=== PATIENT | female | born 1945 | race Caucasian/White ===

== ENCOUNTER 2024-12-04 08:41 | Inpatient (IN) ==
--- NOTE | 2024-12-04 09:11 | Emergency Department Note ---
Impression & Plan Chest pain, Generalized weakness, Symptomatic anemia, Thrombocytopenia ED Provider Note HISTORY OF PRESENT ILLNESS: Patient is a 79-year-old female presenting with chest pain. Patient reports that yesterday morning she had an episode of nausea and vomiting. She states that she was fine throughout the day and had gone to the [employer] and had no issues. Reports that last night she had a heaviness sensation in her chest. States that she felt very diaphoretic and unwell. States the symptoms lasted for a few minutes at a time. States that then throughout the night she had occasional episodes of the chest pain but only when she coughed. Denies any recent fevers. Denies any significant shortness of breath this morning. She states that she woke up again this morning had another episode of vomiting. She discussed her symptoms with her daughter who recommended that she present to the emergency department. Patient is chest pain-free on arrival to the emergency department. She does states she "feels very tired and not right." She reports that she has a history of cardiac stents and is on aspirin and Plavix. Denies any recent fevers or chills. Denies any productivity to her cough. Patient reports that she has also been feeling very weak and rundown today. States that she was going to be going to the [employer] and she just does not feel like her normal self. Denies any melena or hematochezia. ROS: as above PHYSICAL EXAM: Constitutional: Patient appears in no acute distress. HENT: Head: Normocephalic and atraumatic. Eyes: EOMI, PERRL Mouth/Throat: Mucous membranes moist. Neck: Trachea midline. Neck supple. Cardiovascular: RRR, No murmurs, rubs or gallops. Intact distal pulses. Pulmonary/Chest: No respiratory distress. Breath sounds clear and equal bilaterally. No wheezes or rales. Abdominal: Abdomen soft, no tenderness, rebound or guarding. Rectal: Chaperoned by nursing staff. No palpable masses or hemorrhoids. No marvin blood or melena. Hemoccult negative. Musculoskeletal: No edema, tenderness or deformity noted. Skin: Warm and dry. No rash, erythema, pallor or cyanosis Psychiatric: Appropriate mood and affect for situation. Neurological: Alert and keenly responsive. CN II-XII grossly intact, moving all extremities equally and fully. MDM: - Vitals signs stable - History obtained via patient. History as above. - Chronic conditions affecting care: CAD (s/p PCI); HTN - Differential diagnoses include, but are not limited to: Acute coronary syndrome; pulmonary embolism; dissection; tension pneumothorax; esophageal rupture; pneumonia - Order placed for continuous cardiac monitoring. At this time, monitor showed rate of 54 bpm with normal sinus rhythm, per my interpretation. - External medical records reviewed. - EKG image interpreted by myself showed normal sinus rhythm. Rate 63 bpm. QTc 476. No acute ischemic changes. - Laboratory workup interpreted by myself showed normal WBC; anemia (Hgb 8.8); thrombocytopenia (plt 102); normal PT/INR; stable electrolytes; elevated total bilirubin (1.5); normal troponin; normal AST/ALT; normal lipase - CXR image reviewed by myself is negative for pneumonia, per my interpretation. - Repeat troponin within normal limits. - Viral respiratory panel negative - On review of patient's [facility] medical record, she had a hemoglobin of 13.8 on laboratory draw from 01/08/2024. - Rectal exam performed by myself and chaperoned by nursing staff. Rectal exam was negative for any gross blood or melena and Hemoccult negative. - Iron studies were added to the serum workup. Also added tickborne illness workup given the patient's symptoms and thrombocytopenia. - Discussion was had with case manager specialist about patient's case and need for admission - Hospitalist consulted for admission - Patient admitted [facility] hospitalist service for further evaluation and management. ASSESSMENT AND PLAN: Diagnosis: Chest pain; generalized weakness; symptomatic anemia; thrombocytopenia Plan: Admit Past Med/Surg History Problem List (Updated 12/04/24 @ 12:51 by Luz Marina Cervantes MD) Thrombocytopenia (Acute) Symptomatic anemia (Acute) Generalized weakness (Acute) Chest pain (Acute) Abnormal ECG (Acute) Hypertension (Chronic) NSTEMI (non-ST elevated myocardial infarction) (Acute) Unstable angina (Acute) Social History Smoking Status: Never smoker Preferred Language: Swedish Feels Safe at Home: Yes Allergies Allergies Allergy/AdvReac Type Severity Reaction Status Date / Time lisinopril AdvReac Mild cough Verified 12/04/24 11:25 Home Meds Home Medications Medication Instructions Recorded Confirmed aspirin 81 mg tablet,delayed 81 mg PO QAM 07/29/18 12/04/24 release atorvastatin 80 mg tablet 80 mg PO HS 07/29/18 12/04/24 clopidogrel 75 mg tablet 75 mg PO QAM 07/29/18 12/04/24 glipizide 10 mg tablet, extended 10 mg PO BIDM 07/29/18 12/04/24 release 24 hr losartan 25 mg tablet 25 mg PO QAM 07/29/18 12/04/24 metoprolol succinate 25 mg 25 mg PO QAM 07/29/18 12/04/24 tablet,extended release 24 hr nitroglycerin 0.4 mg sublingual 0.4 mg sublingual UD 07/29/18 12/04/24 tablet vit C 250 mg-vit E 90 mg-zinc 40 1 tab PO BID 07/29/18 12/04/24 mg-copper 1 [id number] capsule (PreserVision AREDS-2) amlodipine 10 mg tablet 10 mg PO HS 12/04/24 12/04/24 dapagliflozin propanediol 10 mg 10 mg PO QAM 12/04/24 12/04/24 tablet (Farxiga) dulaglutide 4.5 mg/0.5 mL 4.5 mg subcut WK 12/04/24 12/04/24 subcutaneous pen injector ([facility] [facility]) nystatin 100,000 unit/gram topical 1 applic topical BID PRN Flare 12/04/24 12/04/24 ointment thiamine HCl (vitamin B1) 250 mg 250 mg PO DAILY 12/04/24 12/04/24 tablet (Vitamin B-1) triamcinolone acetonide 0.1 % 1 applic topical BID PRN Flare 12/04/24 12/04/24 topical ointment Results & Data (ED) Vital Signs Vital Signs - 24 hr 12/04/24 08:45 12/04/24 08:59 12/04/24 09:19 Temperature 36 C L Temperature Source Temporal Artery Scan Pulse Rate 70 66 Pulse Rate [Apical] 59 L Pulse Rate from SpO2 Sensor Pulse Rhythm Pulse Rhythm [Apical] Regular Pulse Strength [Apical] Normal Respiratory Rate 18 22 Respiratory Effort / Characteristics Non-Labored Non-Labored Spontaneous Respiratory Depth Normal Normal Respiratory Pattern Regular Regular Blood Pressure 133/60 Blood Pressure [Left Arm] 136/67 Blood Pressure Mean 84 Blood Pressure Mean [Left Arm] 90 Pulse Oximetry 100 94 Oxygen Delivery Method Room Air Room Air Sepsis Recent Fever Within 48 Hours No Sepsis New/Unexplained Change in Mental Status N/A Sepsis Action Taken by Nursing No Action Required 12/04/24 09:47 12/04/24 10:00 12/04/24 11:00 Temperature Temperature Source Pulse Rate 59 L 49 L 54 L Pulse Rate [Apical] Pulse Rate from SpO2 Sensor 48 L 52 L Pulse Rhythm Regular Pulse Rhythm [Apical] Pulse Strength [Apical] Respiratory Rate 24 23 16 Respiratory Effort / Characteristics Respiratory Depth Respiratory Pattern Blood Pressure 132/46 L 135/62 Blood Pressure [Left Arm] Blood Pressure Mean 74 86 Blood Pressure Mean [Left Arm] Pulse Oximetry 97 96 96 Oxygen Delivery Method Room Air Room Air Room Air Sepsis Recent Fever Within 48 Hours Sepsis New/Unexplained Change in Mental Status Sepsis Action Taken by Nursing Laboratory Data 12/04/24 09:05 12/04/24 09:05 Lab Results 12/04/24 12/04/24 12/04/24 Range/Units 09:05 09:40 10:40 WBC 8.70 (4.8-10.8) K/ul RBC 2.62 L (4.20-5.40) M/uL Hgb 8.8 L (12.0-16.0) g/dl Hct 26.7 L (37.0-47.0) % MCV 101.9 H (80.0-100.0) fL MCH 33.6 (25.0-34.0) pg MCHC 33.0 (32.0-36.0) g/dL RDW Std Deviation 59.9 H (36.4-46.3) fL RDW Coeff of Curtis 16.1 H (11.5-14.5) % Plt Count 102 L (130-400) K/uL MPV 11.2 (9.4-12.4) fL Absolute Nucleated RBC 0.40 H (0.00-0.12) K/uL Nucleated RBC % (auto) 4.6 % Neutrophils % (Manual) 70 % Lymphocytes % (Manual) 19 % Monocytes % (Manual) 10 % Eosinophils % (Manual) 1 % Neutrophils # (Manual) 6.09 (1.40-6.50) K/uL Total Absolute Neuts 6.09 (1.4-6.5) K/uL Lymphocytes # (Manual) 1.65 (1.2-3.4) K/uL Total Abs Lymphocytes 1.65 (1.2-3.4) K/uL Monocytes # (Manual) 0.87 H (0.11-0.59) K/uL Eosinophils # (Manual) 0.09 (0-0.50) K/uL Acanthocytes (Spur) 1+ PT 11.4 (9.0-12.0) Seconds INR 1.1 (0.9-1.1) Sodium 134 L (136-145) mmol/L Potassium 4.5 (3.5-5.1) mmol/L Chloride 102 (98-107) mmol/L Carbon Dioxide 25 (21-32) mmol/L Anion Gap 7 (3-11) BUN 24 H (6-23) mg/dl Creatinine 1.07 (0.6-1.2) mg/dl Est Cr Clr Drug Dosing 47.5 ml/min eGFR 53.17 BUN/Creatinine Ratio 22.4 H (10-20) Glucose 265 H (70-99(Fasting)) mg/dl Calcium 8.9 (8.6-10.3) mg/dl Magnesium 2.3 (1.7-2.4) mg/dl Total Bilirubin 1.5 H (0.2-1.0) mg/dl AST 19 (13-39) U/L ALT 21 (7-52) U/L Alkaline Phosphatase 79 (34-104) U/L Troponin I High Sens 12.1 10.8 (0-14) pg/ml Total Protein 6.5 (6.0-8.3) gm/dl Albumin 3.7 (3.4-5.0) gm/dl Globulin 2.8 (2.5-4.0) gm/dl Albumin/Globulin Ratio 1.3 (0.9-2) Lipase 8 L (11-82) U/L Adenovirus (PCR) Not Detected (NotDetected) B. pertussis DNA (PCR) Not Detected (NotDetected) B.parapertussis DNA PCR Not Detected (NotDetected) C. pneumoniae DNA (PCR) Not Detected (NotDetected) Coronavirus OC43 (PCR) Not Detected (NotDetected) Coronavirus HKU1 (PCR) Not Detected (NotDetected) Coronavirus 229E (PCR) Not Detected (NotDetected) SARS-CoV-2 (PCR) Not Detected (NotDetected) Coronavirus NL63 (PCR) Not Detected (NotDetected) Human Metapneumovir PCR Not Detected (NotDetected) Influenza Type A (PCR) Not Detected (NotDetected) Influenza Type B (PCR) Not Detected (NotDetected) M. pneumoniae (PCR) Not Detected (NotDetected) Parainfluenza 1 (PCR) Not Detected (NotDetected) Parainfluenza 2 (PCR) Not Detected (NotDetected) Parainfluenza 3 (PCR) Not Detected (NotDetected) Parainfluenza 4 (PCR) Not Detected (NotDetected) RSV (PCR) Not Detected (NotDetected) Entero/Rhino (PCR) Not Detected (NotDetected) Imaging Data Radiologist's Impression: Chest X-Ray 12/04/24 08:51 XR chest 1V portable CLINICAL HISTORY: Chest pain, nonspecific COMPARISON STUDY: 09/18/2014 FINDINGS: There is mild cardiomegaly without pulmonary vascular congestion. Lungs are mildly hyperexpanded. No consolidation or pleural effusion. No pneumothorax. IMPRESSION: No acute findings. ACT 112: Negative or not required by law. Electronically signed by: Christian Barber M.D. 12/04/2024 9:33 AM Discharge Plan Visit Data Chief Complaint: Illness Stated Complaint: HEAVY CHEST, UPSET STOMACH, WEAKNESS ED Provider: Luz Marina Cervantes Discharge Problem: Chest pain, Generalized weakness, Symptomatic anemia, Thrombocytopenia Condition: Fair Forms Stand Alone Forms: [facility] Prescriptions Prescriptions: No Action atorvastatin 80 mg tablet 80 mg PO HS glipizide 10 mg tablet extended release 24hr 10 mg PO BIDM clopidogrel 75 mg tablet 75 mg PO QAM aspirin 81 mg Tablet,Delayed Release (Dr/Ec) 81 mg PO QAM losartan 25 mg tablet 25 mg PO QAM nitroglycerin 0.4 mg tablet, sublingual 0.4 mg sublingual UD metoprolol succinate 25 mg tablet extended release 24 hr 25 mg PO QAM PreserVision AREDS-2 [id number] Capsule 1 tab PO BID nystatin 100,000 unit/gram ointment 1 applic TOPICAL BID PRN (Reason: Flare) thiamine HCl (vitamin B1) [Vitamin B-1] 250 mg Tablet 250 mg PO DAILY amlodipine 10 mg tablet 10 mg PO HS triamcinolone acetonide 0.1 % ointment 1 applic TOPICAL BID PRN (Reason: Flare) dapagliflozin propanediol [Farxiga] 10 mg tablet 10 mg PO QAM Trulicity 4.5 mg/0.5 mL pen injector 4.5 mg SUBCUT WK Rx Instructions: Monday Referrals Referrals: Len Owens MD [Primary Care Provider] -
--- NOTE | 2024-12-04 09:34 | XRay Report ---
XR chest 1V portable CLINICAL HISTORY: Chest pain, nonspecific COMPARISON STUDY: 09/18/2014 FINDINGS: There is mild cardiomegaly without pulmonary vascular congestion. Lungs are mildly hyperexp anded. No consolidation or pleural effusion. No pneumothorax. IMPRESSION: No acute findings. ACT 112: Negative or not required by law. Electronically signed by: Christian Barber M.D. 12/04/2024 9:33 AM
[2024-12-04 09:41] LABS: Alanine Aminotransferase 21.0 U/L (7-52); Albumin Globulin Ratio 1.3 (0.9-2); Alkaline Phosphatase 79.0 U/L (34-104); Anion Gap 7.0 (3-11); Bilirubin,Total 1.5 mg/dl (0.2-1.0); Blood Urea Nitrogen 24.0 mg/dl (6-23); Calcium 8.9 mg/dl (8.6-10.3); Carbon Dioxide 25.0 mmol/L (21-32); Chloride 102.0 mmol/L (98-107); Creatinine Clr Calc Pharmacy 47.5 ml/min; Globulin 2.8 gm/dl (2.5-4.0); Glucose 265.0 mg/dl (70-99(Fasting)); Lipase 8.0 U/L (11-82); Magnesium 2.3 mg/dl (1.7-2.4); Potassium 4.5 mmol/L (3.5-5.1); Sodium 134.0 mmol/L (136-145); Total Protein 6.5 gm/dl (6.0-8.3)
[2024-12-04 09:46] LABS: Hematocrit (blood only) 26.7 % (37.0-47.0); Hemoglobin 8.8 g/dl (12.0-16.0); Mean Corpuscular Hemoglobin 33.6 pg (25.0-34.0); Mean Corpuscular Volume 101.9 fL (80.0-100.0); Platelet Count 102 K/uL (130-400); RDW Standard Deviation 59.9 fL (36.4-46.3); Red Blood Count 2.62 M/uL (4.20-5.40); White Blood Count 8.70 K/ul (4.8-10.8)
[2024-12-04 09:47] LABS: ALC (manual) 1.65 K/uL (1.2-3.4); ANC (manual) 6.09 K/uL (1.4-6.5); Acanthocytes 1+
[2024-12-04 09:49] LABS: INR 1.1 (0.9-1.1); Prothrombin Time 11.4 Seconds (9.0-12.0)
[2024-12-04 10:48] LABS: Chlamydia pneumoniae PCR Not Detected (NotDetected); Coronavirus 229E PCR Not Detected (NotDetected); Coronavirus CoV-2 (COVID19)PCR Not Detected (NotDetected); Coronavirus HKU1 PCR Not Detected (NotDetected); Coronavirus NL63 PCR Not Detected (NotDetected); Coronavirus OC43PCR Not Detected (NotDetected); Human Metapneumovirus PCR Not Detected (NotDetected); Parainfluenza Virus 1 PCR Not Detected (NotDetected); Parainfluenza Virus 2 PCR Not Detected (NotDetected); Parainfluenza Virus 3 PCR Not Detected (NotDetected); Parainfluenza Virus 4 PCR Not Detected (NotDetected); Respiratory Syncytial VirusPCR Not Detected (NotDetected); Rhinovirus/Enterovirus PCR Not Detected (NotDetected)
[2024-12-04] MEDS ORDERED: ONDANSETRON INJ 2 MG/ML 2 ML VIAL IV PRN (12:47)
[2024-12-04] MEDS ORDERED: MAGNESIUM HYDROXIDE SUSP 30 ML UDC PO PRN (12:47)
[2024-12-04] MEDS ORDERED: POLYETHYLENE (MIRALAX) 17 GM PACK PO PRN (12:47)
[2024-12-04] MEDS ORDERED: ALUMINUM/MAGNESIUM SUSP 30 ML UDC PO PRN (12:47)
--- NOTE | 2024-12-04 12:57 | History & Physical Report ---
<Statement entered by Ezekiel Zuñiga DO - 12/04/24 14:40> Patient seen and examined at bedside #Symptomatic anemia -2 episodes of possible coffee ground emesis in setting of DAPT -Hgb 8.8 with baseline 13 -No melena or BRBPR -Macrocytosis -Concern for PUD Plan -Hold DAPT -Follow HGb. 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 Two episodes of coffee-ground emesis over past 24 hours. H/O AMI in 2015 s/p JOSEPH to prox RCA; continues on DAPT. Admit for symptomatic anemia workup and bradycardia as outlined below. Symptomatic Anemia: Emesis x 2; coffee-ground past 24 hours Hgb ED 8.8; baseline 13.0 from 12/2023 No leukocytosis H/O C-scoope Q 3 years for polyps; no recollection of biospy or interventions No H/O EGD. Trend H&H Q6 x 3 CXR negative Anemia panel ordered T/C and blood consent obtained FOBT ordered; denies hematochezia Protonix 40 mg IV BID started in ED Keep n.p.o. for now; pending GI Consult Lymes pending GI consult placed; discussed via Bern Text Bradycardia: Chest pain: HTN: Substernal chest pressure noted this AM with SOB ECG reveals AF with LBBB; patient with motion; possible PAC's when reviewed; repeat ECG now. Troponin neg x2 Mg+ 2.3, K+ 4.5; monitor labs in AM TSH ordered Last ECHO 2021: EF 65-69%, LVWM normal, no valve abnormalities; Repeat ECHO Orthostatic BPs ordered Normotensive in ED Takes Amlodipine 10 mg QHS and Losartan 25 mg QAM; continue for now as less affect on HR Takes Metoprolol 25 mg daily; hold for now CAD: History of AMI: s/p JOSEPH --> prox RCA in 2016 Follows with [facility]; last appt 2021 Reviewed last note from 2021; was instructed to continue DAPT Takes ASA and Plavix; hold for now given anemia and prolongation of use NIDDM2: Metformin was stopped 05/2024 Last A1C 05/2024 8.4; repeat Takes Farxiga, Trulicity, and Glipizide; hold for now and place on ACHS FSBS SSI HLD: Takes high-dose Atovastatin; continue Obtain lipid panel in AM Disposition: PCP: Dr. Owens Code Status: Full VTE Prophylaxis: Teds and SCDs for now I spent a total of 81 minutes coordinating, documenting, and providing care for this patient excluding time spent inthe performance of separately billed services or time spent by another provider/QHP. History of Present Illness Chief Complaint: weakness and sob Primary Care Provider: Len Owens MD Ms. Mares is a 79 year old female that presented to the ED with complaints of SOB and substernal chest pressure, which resolved when she arrived to the ED. She was at the [facility] and reports she was not eating her usual diet and this morning she woke up and felt winded carrying a suitcase. She also reports coffee-ground emesis over past 24 hours x2. PMH includes: H/O AMI in 2016 s/p JOSEPH to prox RCA; continues on DAPT. NIDDM2, HTN, HLD, macular degeneration, and tobacco use. Pt reports history of colonoscopy, last one unsure of year; receives them Q3 years for polyps; no recent biopsies or note of bleeding. No history of EGD. In the ED, no leukocytosis, slight hyponatremia 134 I suspect due to dehydration from emesis. Hgb 8.8; reportedly baseline is 13 range from last year. ECG revealed AF with LBBB. Otherwise denies MORENO, dizzines, visual or auditory changes, abdominal pain or tenderness, hematochezia, diarrhea, recent falls or trauma. On examination, she is a well nourished female, able to hold full conversation and is a reliable historian. She appears euvolemic, slightly pale on examination. No adventitious lung sounds noted. She was bradycardia on monitor throughout my visit. Pt smokes 5-6 cigarettes/day for 20 pack year history. No alcohol or recreational drug use. For now, patient will be admitted for symptomatic anemia and bradycardia. Will trend H/H, T/C and blood consent obtained. Will ordered FOBT, Protonix BID IV, GI Consult, anemia panel; keep NPO for now. For bradycardia, will repeat ECG, repeat ECHO, ortho BPs, add on TSH, and adjust betablocker; will place on SSI, cards consult placed. Allergies Allergy/AdvReac Type Severity Reaction Status Date / Time lisinopril AdvReac Mild cough Verified 12/04/24 11:25 Home Medications Medication Instructions Recorded Confirmed Type aspirin 81 mg tablet,delayed 81 mg PO QAM 07/29/18 12/04/24 History release atorvastatin 80 mg tablet 80 mg PO HS 07/29/18 12/04/24 History clopidogrel 75 mg tablet 75 mg PO QAM 07/29/18 12/04/24 History glipizide 10 mg tablet, extended 10 mg PO BIDM 07/29/18 12/04/24 History release 24 hr losartan 25 mg tablet 25 mg PO QAM 07/29/18 12/04/24 History metoprolol succinate 25 mg 25 mg PO QAM 07/29/18 12/04/24 History tablet,extended release 24 hr nitroglycerin 0.4 mg sublingual 0.4 mg sublingual UD 07/29/18 12/04/24 History tablet vit C 250 mg-vit E 90 mg-zinc 40 1 tab PO BID 07/29/18 12/04/24 History mg-copper 1 [id number] capsule (PreserVision AREDS-2) amlodipine 10 mg tablet 10 mg PO HS 12/04/24 12/04/24 History dapagliflozin propanediol 10 mg 10 mg PO QAM 12/04/24 12/04/24 History tablet (Farxiga) dulaglutide 4.5 mg/0.5 mL 4.5 mg subcut WK 12/04/24 12/04/24 History subcutaneous pen injector (Trulicity) nystatin 100,000 unit/gram topical 1 applic topical BID PRN Flare 12/04/24 12/04/24 History ointment thiamine HCl (vitamin B1) 250 mg 250 mg PO DAILY 12/04/24 12/04/24 History tablet (Vitamin B-1) triamcinolone acetonide 0.1 % 1 applic topical BID PRN Flare 12/04/24 12/04/24 History topical ointment Past Med/Surg History Problem List Thrombocytopenia (Acute) Symptomatic anemia (Acute) Generalized weakness (Acute) Chest pain (Acute) Abnormal ECG (Acute) Hypertension (Chronic) NSTEMI (non-ST elevated myocardial infarction) (Acute) Unstable angina (Acute) Social History Smoking Status: Never smoker Preferred Language: Tajik Feels Safe at Home: Yes Review of Systems Review of Systems: Neuro: (-) Falls, trauma, slurred speech HEENT: (-) MORENO, dizziness, dysphagia, visual or auditory changes CV: (-) CP, palpitations, swelling Resp: (-) SOB GI: (-) appetite changes, N/V/D, bowel changes : (-) urinary changes Skin: (-) rashes Psych: (-) anxiety, depression Physical Exam Physical Exam: Neuro: AAOx4, PERRLA, no aphagia, memory changes, CNII-XII grossly intact HEENT: head normocephalic, moist mucus membranes CV: S1/S2, (-) M/G/R, (-) edema, cap refill < 3 seconds Resp: Lungs CTA in all garduno. On RA GI: Abdomen S/NT/ND, Ax4 bowel sounds, (-) CVA tenderness Musculoskeletal: 5/5 B/L UE strength, 5/5 B/L LE strength. No gait disturbance Skin: (-) rashes , (-) erythema. Psych: euthymic mood Results & Data Results & Data Vital Signs (Past 12 Hours) Vital Signs Temp Pulse Pulse Resp BP BP Pulse Ox 12/04/24 11:00 54 L 16 135/62 96 12/04/24 10:00 49 L 23 132/46 L 96 12/04/24 09:47 59 L 24 97 12/04/24 09:19 59 L 22 136/67 94 12/04/24 08:59 66 12/04/24 08:45 36 C L 70 18 133/60 100 O2 Del Method 12/04/24 11:00 Room Air 12/04/24 10:00 Room Air 12/04/24 09:47 Room Air 12/04/24 09:19 Room Air 12/04/24 08:59 12/04/24 08:45 Room Air Laboratory Results Short CBC 12/04/24 Range/Units 09:05 WBC 8.70 (4.8-10.8) K/ul Hgb 8.8 L (12.0-16.0) g/dl Hct 26.7 L (37.0-47.0) % Plt Count 102 L (130-400) K/uL BMP 12/04/24 09:05 Sodium 134 L Potassium 4.5 Chloride 102 Carbon Dioxide 25 BUN 24 H Creatinine 1.07 Glucose 265 H Calcium 8.9 Liver Function 12/04/24 Range/Units 09:05 Total Bilirubin 1.5 H (0.2-1.0) mg/dl AST 19 (13-39) U/L ALT 21 (7-52) U/L Alkaline Phosphatase 79 (34-104) U/L Albumin 3.7 (3.4-5.0) gm/dl Diagnostic Findings Chest X-Ray 12/04/24 08:51 XR chest 1V portable CLINICAL HISTORY: Chest pain, nonspecific COMPARISON STUDY: 09/18/2014 FINDINGS: There is mild cardiomegaly without pulmonary vascular congestion. Lung s are mildly hyperexpanded. No consolidation or pleural effusion. No pneumothorax. IMPRESSION: No acute findings. ACT 112: Negative or not required by law. Electronically signed by: Christian Barber M.D. 12/04/2024 9:33 AM Code Status & VTE Plan Code Status Full Code in the event of cardiac or respiratory arrest VTE Prophylaxis Plan VTE Prophylaxis will be ordered: Yes
[2024-12-04 13:02] LABS: Iron 79.0 mcg/dl (35-150); Total Iron Binding Cap Calc 314.0 mcg/dl (250-450); Transferrin 224.0 mg/dl (200-360); Transferrin (FE) Percent Satur 25.0 % (15-50)
[2024-12-04 13:22] LABS: Ferritin 176.9 ng/ml (8-388)
[2024-12-04] MEDS ORDERED: CARBOHYDRATES FOR HYPOGLYCEMIA PO PRN (14:42)
[2024-12-04] MEDS ORDERED: PHARMACY GLYCEMIC MGMT CONSULT PRN (14:42)
[2024-12-04] MEDS ORDERED: GLUCOSE 40% GEL 15 GM TUBE PO PRN (14:42)
[2024-12-04] MEDS ORDERED: GLUCOSE 10 TAB/TUBE PO PRN (14:42)
[2024-12-04] MEDS ORDERED: GLUCAGON FOR INJ 1 MG VIAL SQ PRN (14:42)
[2024-12-04] MEDS ORDERED: DEXTROSE 50% 50 ML SYRINGE IV PRN (14:42)
--- NOTE | 2024-12-04 14:56 | Cardiology Consultation ---
Date of Consultation December 04, 2024 Assessment & Plan (1) Chest pain: (2) Atrial fibrillation with slow ventricular response: (3) Symptomatic anemia: (4) Thrombocytopenia: Plan Assessment: 79 year old female with prior history of CAD s/p PCI with JOSEPH x2 2016 on DAPT presents with acute onset N/V, weakness, chest discomfort, shortness of breath and weakness. Found to be in Atrial fibrillation with a slow ventricular response. HgB 8.8, new macrocytic anemia and thrombocytopenia. Admitted for further assessment, requesting cardiology evaluation due to prior CAD and newly dx A-fib. Plan: 1. Chest pain - History of CAD with prior PCI dating back to 2016 -Atypical in characteristic, intermittent but resolved prior to ER visit. No acute ST-T wave changes on EKG; however, patient is found to be in atrial fibrillation which is new for her. -High sensitivity troponin negative x2 -Multiple vomiting episodes over past 24 hours, with patient reports of a small blood streak, but denies coffee grounds. -Echocardiogram pending to assess overall structure and function. -Blood pressure is controlled. -Continue Amlodipine, Losartan and Atorvastatin -Metoprolol succinate on hold s/t bradycardia at this time. 2. A-fib with slow ventricular response -Echocardiogram pending. No prior history of A-fib per patient. Patient has not seen cardiology or had an EKG since 2021. -Due to bradycardia, will hold patient's home dose of Metoprolol succinate. Monitor closely on telemetry -Review of records from [facility] does report two separate episodes of brief intermittent Mobitz I and Mobitz II; however, it is important to note that both episodes were in the setting of post cardiac cath as well as post nuclear stress test injection creating likely high vagal tone response to each event. -[id number] score is 5 (HTN, age, DM, and gender). Would ideally wish to anticoagulate patient; however, in the setting of newly discovered anemia, close trending of HgB is cruical. -GI on board and appreciate recommendation. 3. Symptomatic anemia 4. Thrombocytopenia -No reported prior history -patient denies any history of bleeding disorders, prior anemia dx. -No recurrence of vomiting and second episode patient reports appeared just as the coffee she drank. denies any blood in second episode and denies any appearance of "coffee ground emesis". -GI on consult also. -Ongoing management per primary team Case has been discussed with Dr. Torre. Further recommendations regarding plan of care as per his assessment. I spent a total of 50 minutes on the date of service in preparation, delivery, documentation of the care provided to the patient excluding any time spent in the performance of separately billed services. ASA [facility] Supervising Physician Co-Signing Physician Notes Attending attestation: Case reviewed with the advanced practitioner. I have personally performed a history and physical examination on the patient. I have reviewed the advanced practitioner's documentation on the date of service referenced in note, and I agree with, and take responsibility for the plan of care. Subjective: Patient currently without any acute distress. Notes upset stomach yesterday and again today. Transient chest tightness yesterday. Fatigue this morning but minimizes symptoms such as exertional shortness of breath. A week ago if she was doing her usual housework without any perceived limitation. Exam: Cardiovascular: Irregular rhythm, no murmurs, no edema Data: EKG tracings performed today x 2 revealed rate controlled atrial fibrillation which is a new finding. Right bundle branch block which is a chronic finding. Summary transthoracic echocardiogram performed today 12/04/2024 Rate controlled atrial fibrillation present during the study. There is mild concentric left ventricular hypertrophy. No regional wall motion abnormalities noted. The left ventricle is hyperdynamic. Left Ventricular Ejection Fraction = >70 %. The right ventricle is normal in size and function. The left atrium is moderately dilated. Mild aortic regurgitation. There is moderate mitral annular calcification. There is mild mitral regurgitation. There is mild tricuspid regurgitation. The pulmonary artery systolic pressure is estimated to be 45 mm Hg (mildly elevated). Findings are consistent with diastolic dysfunction and elevated left-sided filling pressure. Most recent outpatient hemoglobin level had been on 01/08/2024 and was 13.8 at t hat time as compared to 8.8 g/dL today Impression/ Plan: Chest pain: Positive troponin negative x 2 thus far, EKG without ischemic changes. Echocardiogram without regional wall motion abnormalities. Chronic aspirin and clopidogrel currently on hold due to anemia with iron studies pending. Newly recognized atrial fibrillation: Telemetry at present reveals ventricular rates in the 60s. Appears to be atrial fibrillation as documented by EKG tracings from earlier today, however at times, question the presence of sinus rhythm with premature atrial contractions. It is difficult to determine the onset of atrial fibrillation with most recent EKG as an outpatient having been back in 2020 and most recent EKG at this institution dates back to 2019. Holding off on anticoagulation. Echocardiogram suggest diastolic dysfunction. Patient not volume overloaded on exam. Will add a proBNP for further assessment to the labs already obtained. Trend hemoglobin, await iron studies. I spent a total of 30 minutes coordinating, documenting, and providing care for this patient excluding time spent in the performance of separately billed services or time spent by another provider. Americo Torre, DO History of Present Illness Reason for Consultation: Bradycardia Requesting Physician: Rian carmonaist Attending Physician: Ezekiel Zuñiga DO History of Present Illness HPI: 79 year old female with PMHx significant for CAD with prior PCI and JOSEPH to OM and Prox RCA (09/2014), HTN, HLD, DM type 2 (NIDDM), macular degeneration, and GERD that presents to the ER with acute complaints of shortness of breath, chest pressure and weakness. She had been visiting the [facility] and admits to not eating her normal diet, but woke up at home this am feeling winded when a ttempting to carry a suitcase across her bedroom to pack in order to stay overnight at the formerly [facility]. Patient reports that she had two separate episodes of vomiting, once yesterday morning and once this morning. She reports only having a few sips of coffee prior to both episodes and states "I literally vomited coffee". She states that she noticed a small red streak with episode number 1, but nothing in the second. patient describes the chest pressure as epigastic to mid-sternal, non-radiating and no other associated symptoms. reports a few episodes yesterday lasting maybe minutes. EKG on admission shows Atrial fibrillation with a Right BBB, prior inferior infarct. rate 63bpm, QTc 487ms, repeat EKG A-fib with slow ventricular response rate 50bpm. Chest xray with no acute findings. H/H 8.8/26.7 TSH pending High sensitivity troponin negative x2 Review of Telemetry shows A-fib in the 50's. No evidence of sinus pause and no high grade heart block. Allergies Allergy/AdvReac Type Severity Reaction Status Date / Time lisinopril AdvReac Mild cough Verified 12/04/24 11:25 Home Medications Medication Instructions Recorded Confirmed Type aspirin 81 mg tablet,delayed 81 mg PO QAM 07/29/18 12/04/24 History release atorvastatin 80 mg tablet 80 mg PO HS 07/29/18 12/04/24 History clopidogrel 75 mg tablet 75 mg PO QAM 07/29/18 12/04/24 History glipizide 10 mg tablet, extended 10 mg PO BIDM 07/29/18 12/04/24 History release 24 hr losartan 25 mg tablet 25 mg PO QAM 07/29/18 12/04/24 History metoprolol succinate 25 mg 25 mg PO QAM 07/29/18 12/04/24 History tablet,extended release 24 hr nitroglycerin 0.4 mg sublingual 0.4 mg sublingual UD 07/29/18 12/04/24 History tablet vit C 250 mg-vit E 90 mg-zinc 40 1 tab PO BID 07/29/18 12/04/24 History mg-copper 1 [id number]-wlzuoc-pftoar capsule (PreserVision AREDS-2) amlodipine 10 mg tablet 10 mg PO HS 12/04/24 12/04/24 History dapagliflozin propanediol 10 mg 10 mg PO QAM 12/04/24 12/04/24 History tablet (Farxiga) dulaglutide 4.5 mg/0.5 mL 4.5 mg subcut WK 12/04/24 12/04/24 History subcutaneous pen injector (Trulicity) nystatin 100,000 unit/gram topical 1 applic topical BID PRN Flare 12/04/24 12/04/24 History ointment thiamine HCl (vitamin B1) 250 mg 250 mg PO DAILY 12/04/24 12/04/24 History tablet (Vitamin B-1) triamcinolone acetonide 0.1 % 1 applic topical BID PRN Flare 12/04/24 12/04/24 History topical ointment Patient History Social History Smoking Status: Current every day smoker Tobacco Type: Cigarettes Second Hand Exposure: Yes; Do You Dip or Chew Tobacco: No; Tobacco Cessation Education Requested by Patient: No Hx Alcohol Use: Yes Alcohol type: beer Hx Substance Use: No Preferred Language: Amharic Communication Ability: Effective Orthotist Or Prosthetist Required: No Beliefs That Will Affect Care: None Current Living Situation: Alone Other Information That Helps Us Care for You: No Feels Safe at Home: Yes Safety Concerns: Feels Safe At This Time Assistive Devices: Cane, Denture - Upper, Denture - Lower and Glasses Review of Systems Review of Systems: All systems reviewed & are unremarkable except as noted in HPI & below Physical Exam Constitutional: well developed and well nourished; no acute distress and not ill appearing Neck: normal visual inspection and trachea midline Respiratory: normal respiratory effort; no cough Auscultation: lungs clear to auscultation bilaterally; no crackles, no rales, no rhonchi and no wheezes Cardiovascular: Rate/Rhythm: + bradycardic and + irregularly irregular Heart Sounds: normal S1 and normal S2; no murmur Vessels: dorsalis pedis pul ses present; no JVD Extremities: no edema Skin: no rashes, warm and dry Psychiatric: A+Ox3, euthymic affect Results & Data Vital Signs (Past 12 Hours) Vital Signs Temp Pulse Pulse Resp BP BP Pulse Ox 12/04/24 13:56 36.7 C 48 L 16 131/61 98 12/04/24 13:27 52 L 20 140/67 95 12/04/24 13:02 53 L 18 127/49 L 95 12/04/24 13:02 53 L 18 95 12/04/24 13:01 51 L 18 127/49 L 95 12/04/24 11:00 54 L 16 135/62 96 12/04/24 10:00 49 L 23 132/46 L 96 12/04/24 09:47 59 L 24 97 12/04/24 09:19 59 L 22 136/67 94 12/04/24 08:59 66 12/04/24 08:45 36 C L 70 18 133/60 100 O2 Del Method 12/04/24 13:56 Room Air 12/04/24 13:27 Room Air 12/04/24 13:02 Room Air 12/04/24 13:02 Room Air 12/04/24 13:01 Room Air 12/04/24 11:00 Room Air 12/04/24 10:00 Room Air 12/04/24 09:47 Room Air 12/04/24 09:19 Room Air 12/04/24 08:59 12/04/24 08:45 Room Air Laboratory Results Cardiac Enzymes 12/04/24 12/04/24 Range/Units 09:05 10:40 AST 19 (13-39) U/L Troponin I High Sens 12.1 10.8 (0-14) pg/ml Coagulation 12/04/24 Range/Units 09:05 PT 11.4 (9.0-12.0) Seconds CBC 12/04/24 Range/Units 09:05 WBC 8.70 (4.8-10.8) K/ul RBC 2.62 L (4.20-5.40) M/uL Hgb 8.8 L (12.0-16.0) g/dl Hct 26.7 L (37.0-47.0) % Plt Count 102 L (130-400) K/uL Comprehensive Metabolic Panel 12/04/24 Range/Units 09:05 Sodium 134 L (136-145) mmol/L Potassium 4.5 (3.5-5.1) mmol/L Chloride 102 (98-107) mmol/L Carbon Dioxide 25 (21-32) mmol/L BUN 24 H (6-23) mg/dl Creatinine 1.07 (0.6-1.2) mg/dl Glucose 265 H (70-99(Fasting)) mg/dl Calcium 8.9 (8.6-10.3) mg/dl AST 19 (13-39) U/L ALT 21 (7-52) U/L Alkaline Phosphatase 79 (34-104) U/L Total Protein 6.5 (6.0-8.3) gm/dl Albumin 3.7 (3.4-5.0) gm/dl Intake and Output 12/04/24 12/04/24 12/04/24 06:59 14:59 22:59 Other: Weight 84.3 kg Weight Measurement Method Standing Scale Patient Weight 12/05/24 06:59 Weight 84.3 kg [place] [address] IN/OBS CONSULT LVL 5,80M Patient Type New Diagnoses Chest pain R07.9 Atrial fibrillation with slow ventricular response I48.91 Symptomatic anemia D64.9 Thrombocytopenia D69.6 Time Spent (min) 80 Comment 50 minutes by Derrell Ritchie, [address] Torre
--- NOTE | 2024-12-04 15:08 | Pharmacy Report ---
Pharmacy Glycemic Short Note 2 - Date of Service December 04, 2024 - Glycemic Short BSG Results (Last 24 hours): 12/04/24 12/04/24 09:05 14:24 Glucose 265 H POC Glucose 175 H OUTPATIENT ANTIDIABETIC REGIMEN: * Glipizide 10 mg PO BIDM * Dapagliflozin 10 mg PO qAM * Trulicity 4.5 mg SC weekly HbA1c: ordered for 12/05/24 ASSESSMENT: * ET is a 79 year old female presenting to ED w/ chest pain, shortness of breath, and coffee-ground emesis. Admitted for evaluation of these symptoms and anemia. * Pharmacy consulted for glycemic management (history of T2DM, on orals and GLP- 1 agonist as outpatient, HbA1c pending) * NPO for now pending GI evaluation PLAN FOR INPATIENT GLYCEMIC CONTROL: * Hold outpatient oral diabetes medications * Basal insulin * Lantus 0-5-10 units SC HS (see EHR for details) * Bolus insulin * NovoLog per scale ACHS or Q6hrs while NPO * Goal Range: Low 120 mg/dL - High 160 mg/dL * Correction Factor: 30 mg/dL/unit * Nutritional / Prandial insulin per carb ratio of 1 unit per 9 grams CHO consumed
[2024-12-04 15:13] LABS: Thyroid Stimulating Hormone 3.784 uIu/ml (0.300-4.500)
--- NOTE | 2024-12-04 15:42 | Gastrointestinal Consultation ---
Date of Consultation December 04, 2024 Assessment & Plan (1) Macrocytic anemia: Patient heme negative in ED with a macrocytic anemia. Based on these factors, would not typically plan for EGD, however with new onset Afib would only consider EGD if cardiology felt it was medically necessary prior to initiating anticoagulation. Supervising Physician Co-Signing Physician Notes Macrocytic anemia. Scription of coffee emesis plus after actual cup of coffee within minutes. She states there were no coffee grounds or blood. Stools are negative for heme. She has a macrocytic anemia. At this point would only consider upper endoscopy if it influences decision for anticoagulation.. She had had an episode A-fib and anticoagulation may be considered in that regard. I would check iron stores in addition to a B12 and folate to exclude mixed anemia. History of Present Illness Reason for Consultation: Patient is a 79 yo female admitted for symptomatic anemia. GI consulted for "GI bleed." Patient notes that yesterday she had an episode of vomiting 5 minutes after drinking coffee. Emesis was brown. No coffee grounds. She did not have abdominal pain. She notes that this morning she had another episode of emesis. No bleeding. Hemoccult in the ED documented by Dr. Cervantes was negative. No melena. No hematochezia. No PUD history. Infrequent NSAID use. H/H 8.8/26.7. MCV 101.9. Last colonoscopy in January 2024. She notes a polyp. She has a history of CAD with stents in 2016. She is on ASA and Plavix. She has new onset Afib here. Cardiology following. Attending Physician: Ezekiel Zuñiga DO Allergies Allergy/AdvReac Type Severity Reaction Status Date / Time lisinopril AdvReac Mild cough Verified 12/04/24 11:25 Home Medications Medication Instructions Recorded Confirmed Type aspirin 81 mg tablet,delayed 81 mg PO QAM 07/29/18 12/04/24 History release atorvastatin 80 mg tablet 80 mg PO HS 07/29/18 12/04/24 History clopidogrel 75 mg tablet 75 mg PO QAM 07/29/18 12/04/24 History glipizide 10 mg tablet, extended 10 mg PO BIDM 07/29/18 12/04/24 History release 24 hr losartan 25 mg tablet 25 mg PO QAM 07/29/18 12/04/24 History metoprolol succinate 25 mg 25 mg PO QAM 07/29/18 12/04/24 History tablet,extended release 24 hr nitroglycerin 0.4 mg sublingual 0.4 mg sublingual UD 07/29/18 12/04/24 History tablet vit C 250 mg-vit E 90 mg-zinc 40 1 tab PO BID 07/29/18 12/04/24 History mg-copper 1 [id number]-[id number] capsule (PreserVision AREDS-2) amlodipine 10 mg tablet 10 mg PO HS 12/04/24 12/04/24 History dapagliflozin propanediol 10 mg 10 mg PO QAM 12/04/24 12/04/24 History tablet (Farxiga) dulaglutide 4.5 mg/0.5 mL 4.5 mg subcut WK 12/04/24 12/04/24 History [facility] nystatin 100,000 unit/gram topical 1 applic topical BID PRN Flare 12/04/24 12/04/24 History ointment thiamine HCl (vitamin B1) 250 mg 250 mg PO DAILY 12/04/24 12/04/24 History tablet (Vitamin B-1) triamcinolone acetonide 0.1 % 1 applic topical BID PRN Flare 12/04/24 12/04/24 History topical ointment Patient History Social History Smoking Status: Current every day smoker Tobacco Type: Cigarettes Second Hand Exposure: Yes; Do You Dip or Chew Tobacco: No; Tobacco Cessation Education Requested by Patient: No Hx Alcohol Use: Yes Alcohol type: beer Hx Substance Use: No Preferred Language: Moldovan Communication Ability: Effective Investment Broker Required: No Beliefs That Will Affect Care: None Current Living Situation: Alone Other Information That Helps Us Care for You: No Feels Safe at Home: Yes Safety Concerns: Feels Safe At This Time Assistive Devices: Cane, Denture - Upper, Denture - Lower and Glasses Review of Systems Constitutional: no fever and no chills Respiratory: no cough Gastrointestinal: + nausea and + vomiting; no abdominal pa in, no belching, no heartburn, no coffee ground emesis, no hematemesis, no diarrhea/loose stools, no blood in stools and no melena Physical Exam Constitutional: well developed Respiratory: normal respiratory effort Cardiovascular: Rate/Rhythm: + irregularly irregular Gastrointestinal (Abdomen): normal bowel sounds, soft, nontender, no hepatosplenomegaly Psychiatric: Orientation: alert and oriented x 3 Results & Data Vital Signs (Past 12 Hours) Vital Signs Temp Pulse Pulse Resp BP BP Pulse Ox 12/04/24 13:56 36.7 C 48 L 16 131/61 98 12/04/24 13:27 52 L 20 140/67 95 12/04/24 13:02 53 L 18 127/49 L 95 12/04/24 13:02 53 L 18 95 12/04/24 13:01 51 L 18 127/49 L 95 12/04/24 11:00 54 L 16 135/62 96 12/04/24 10:00 49 L 23 132/46 L 96 12/04/24 09:47 59 L 24 97 12/04/24 09:19 59 L 22 136/67 94 12/04/24 08:59 66 12/04/24 08:45 36 C L 70 18 133/60 100 O2 Del Method 12/04/24 13:56 Room Air 12/04/24 13:27 Room Air 12/04/24 13:02 Room Air 12/04/24 13:02 Room Air 12/04/24 13:01 Room Air 12/04/24 11:00 Room Air 12/04/24 10:00 Room Air 12/04/24 09:47 Room Air 12/04/24 09:19 Room Air 12/04/24 08:59 12/04/24 08:45 Room Air PG Care Time/CCT Total # of Minutes Spent Total Time Spent with Patient: Total time spent is greater than 50% in coordination of care (as documented) at patient's floor/unit and/or counseling patient: Coding Level of Care Code 32396 INT INP/OBS CARE 3/75MIN Diagnoses Macrocytic anemia D53.9
[2024-12-04] MEDS: INSULIN ASPART PER UNIT CHARGE SC SCH (17:51)
[2024-12-04] MEDS ORDERED: LANTUS PER UNIT CHARGE SQ SCH (21:00)
[2024-12-04 21:56] LABS: Reticulocytes # 0.050 10^6/uL (0.020-0.100)
[2024-12-04] MEDS: LANTUS PER UNIT CHARGE SQ SCH (22:34)
[2024-12-04] MEDS: PANTOprazole 40 MG/10 ML SYR IV SCH (22:35)
[2024-12-04] MEDS: ATORVASTATIN 40 MG TAB PO SCH (22:36)
[2024-12-05] MEDS: INSULIN ASPART PER UNIT CHARGE SC SCH ×2 (06:38→21:58)
[2024-12-05 07:14] LABS: Anion Gap 7.0 (3-11); Blood Urea Nitrogen 22.0 mg/dl (6-23); Calcium 8.7 mg/dl (8.6-10.3); Carbon Dioxide 24.0 mmol/L (21-32); Chloride 107.0 mmol/L (98-107); Creatinine Clr Calc Pharmacy 61.0 ml/min; Glucose 156.0 mg/dl (70-99(Fasting)); Potassium 4.3 mmol/L (3.5-5.1); Sodium 138.0 mmol/L (136-145)
[2024-12-05 07:54] LABS: Hemoglobin A1C 9.5 % (4.5-5.6)
[2024-12-05] MEDS: LANTUS PER UNIT CHARGE SQ SCH (08:32)
[2024-12-05] MEDS: LOSARTAN POTASSIUM 25 MG TAB PO SCH (08:34)
[2024-12-05] MEDS: THIAMINE HCL 50 MG TABLET PO SCH (08:35)
[2024-12-05] MEDS: CEROVITE ADV FORMULA TAB PO SCH (08:35)
[2024-12-05 08:53] LABS: Magnesium 2.3 mg/dl (1.7-2.4)
[2024-12-05 08:59] LABS: Hematocrit (blood only) 24.5 % (37.0-47.0); Hemoglobin 8.1 g/dl (12.0-16.0); Mean Corpuscular Hemoglobin 33.9 pg (25.0-34.0); Mean Corpuscular Volume 102.5 fL (80.0-100.0); Platelet Count 77 K/uL (130-400); RDW Standard Deviation 59.3 fL (36.4-46.3); Red Blood Count 2.39 M/uL (4.20-5.40); White Blood Count 6.84 K/ul (4.8-10.8)
[2024-12-05 09:09] LABS: Hypersegmented Neutrophils 1+; Immature Granulocytes # (auto) 0.02 K/uL (0.01-0.20); Immature Granulocytes % (auto) 0.3 %; Ovalocytes 1+
--- NOTE | 2024-12-05 09:44 | Anesthesiology Consultation ---
Date of Service December 05, 2024 Assessment & Plan Chart Review Chart Review: Acceptable Risk for Surgery and Patient NOT seen in Pre Admission Testing Consults Requested none ASA ASA3 Proposed Anesthesia Anesthesia Type: MAC Risk / Benefits Reviewed With: PT / POA / Parent / Guardian, Accepts Plan and Informed Consent Obtained Additional Comments: Need for ruling out source of bleeding prior to anticoagulation for new onset Atrial fibrillation History Surgery Operation Date: 12/05/24 16:30 Proposed Procedures p Esophagogastroduodenoscopy Dr. Reuben Alexis MD Height/Weight Height: 5 ft 6 in Weight: 84.1 kg Allergies Allergy/AdvReac Type Severity Reaction Status Date / Time lisinopril AdvReac Mild cough Verified 12/04/24 11:25 Medications Home Medications Medication Instructions Recorded Confirmed Last Taken aspirin 81 mg tablet,delayed 81 mg PO QAM 07/29/18 12/04/24 07/29/18 release atorvastatin 80 mg tablet 80 mg PO HS 07/29/18 12/04/24 07/28/18 clopidogrel 75 mg tablet 75 mg PO QAM 07/29/18 12/04/24 07/29/18 glipizide 10 mg tablet, extended 10 mg PO BIDM 07/29/18 12/04/24 07/29/18 release 24 hr losartan 25 mg tablet 25 mg PO QAM 07/29/18 12/04/24 07/29/18 metoprolol succinate 25 mg 25 mg PO QAM 07/29/18 12/04/24 07/29/18 tablet,extended release 24 hr nitroglycerin 0.4 mg sublingual 0.4 mg sublingual UD 07/29/18 12/04/24 05/16/18 tablet 1 vit C 250 mg-vit E 90 mg-zinc 40 1 tab PO BID 07/29/18 12/04/24 07/26/18 mg-copper 1 nr-ewlfmf-ifjaoc capsule (PreserVision AREDS-2) amlodipine 10 mg tablet 10 mg PO HS 12/04/24 12/04/24 Unknown dapagliflozin propanediol 10 mg 10 mg PO QAM 12/04/24 12/04/24 Unknown tablet (Farxiga) dulaglutide 4.5 mg/0.5 mL 4.5 mg subcut WK 12/04/24 12/04/24 Unknown subcutaneous pen injector ([facility]) nystatin 100,000 unit/gram topical 1 applic topical BID PRN Flare 12/04/24 12/04/24 Unknown ointment thiamine HCl (vitamin B1) 250 mg 250 mg PO DAILY 12/04/24 12/04/24 Unknown tablet (Vitamin B-1) triamcinolone acetonide 0.1 % 1 applic topical BID PRN Flare 12/04/24 12/04/24 Unknown topical ointment Active Medications Generic Name Dose Route Start Last Admin Trade Name Connor PRN Reason Stop Dose Admin Amlodipine Besylate 10 mg 12/04/24 21:00 12/04/24 22:35 Amlodipine Besylate 5 Mg Tab PO 01/03/25 20:59 10 mg HS ZAIRA Administration Atorvastatin Calcium 80 mg 12/04/24 21:00 12/04/24 22:36 Atorvastatin 40 Mg Tab PO 01/03/25 20:59 80 mg HS ZIARA Administration Pantoprazole Sodium 40 mg in 10 mls @ 5 mls/min 12/04/24 21:00 12/05/24 08:32 Protonix IV 01/03/25 20:59 5 mls/min BID ZAIRA Administration Insulin Aspart 0 units 12/05/24 06:00 12/05/24 06:38 Insulin Aspart Per Unit Charge SC 01/04/25 05:59 Not Given Q6 ZAIRA Insulin Glargine 0 units 12/04/24 21:00 12/04/24 22:34 Lantus Per Unit Charge SQ 01/03/25 20:59 5 units HS ZAIRA Administration Protocol Insulin Glargine 5 units 12/05/24 09:00 12/05/24 08:32 Lantus Per Unit Charge SQ 12/05/24 11:00 5 units QAM ZAIRA Administration Losartan Potassium 25 mg 12/05/24 09:00 12/05/24 08:34 Losartan Potassium 25 Mg Tab PO 01/04/25 08:59 25 mg QAM ZAIRA Administration Multivitamins/Minerals 1 tab 12/05/24 09:00 12/05/24 08:35 Cerovite Adv Formula Tab PO 01/04/25 08:59 1 tab DAILY ZAIRA Administration Thiamine HCl 250 mg 12/05/24 09:00 12/05/24 08:35 Thiamine Hcl 50 Mg Tablet PO 01/04/25 08:59 250 mg DAILY ZAIRA Administration Social History Smoking Status: Current every day smoker Do You Dip or Chew Tobacco: No Hx Alcohol Use: Yes Alcohol type: beer alcohol intake frequency: holidays/special occasions only Hx Substance Use: No Review of Systems ROS Unobtainable: All systems reviewed & are unremarkable except as noted in HPI & below Physical Exam Vital Signs Last Vital Signs Temp 36.9 C 12/05/24 08:28 Pulse 72 12/05/24 08:28 Resp 18 12/05/24 08:28 BP 133/73 12/05/24 08:28 Pulse Ox 96 12/05/24 08:28 O2 Del Method Room Air 12/05/24 08:28 Constitutional WD/WN, vitals as above Eyes PERRL, conjunctivae normal, anicteric sclerae ENMT external ear and nose normal, oropharynx normal Mouth: no dentition abnormality Thyromental Distance: > or= 3.5 Finger Breadths Mallampati Class: II Neck trachea midline, no thyromegaly Respiratory normal respiratory effort, lungs clear to auscultation Cardiovascular Rate/Rhythm: regular rate and regular rhythm (irregular rhythm) Musculoskeletal Head/Neck/Chest: normocephalic and head atraumatic Spine: normal cervical ROM and no pain with cervical ROM Extremities: extremities normal to inspection and strength 5/5 throughout; full ROM of extremities Skin no rashes, warm and dry Neurologic moves all extremities Motor/Sensory: + sensory deficit Psychiatric Orientation: alert and oriented x 3 Testing Laboratory Results 12/05/24 06:28 12/05/24 06:27 PT 11.4 Seconds (9.0-12.0) 12/04/24 09:05 INR 1.1 (0.9-1.1) 12/04/24 09:05 Hemoglobin A1c 9.5 % (4.5-5.6) H 12/05/24 06:27 Blood Type O Positive 12/04/24 12:50 Antibody Screen NEGATIVE 12/04/24 12:50 12/05/24 12/05/24 12/05/24 08:07 06:25 00:11 POC Glucose 197 H 183 H 144 H
--- NOTE | 2024-12-05 09:59 | History & Physical Bridge Note ---
Date of Service December 05, 2024 History & Physical Bridge Note I have examined the patient, reviewed the History & Physical and in the interval since the performance of the History & Physical I have noted the following changes of clinical significance: no changes noted Patient has had no GI bleeding overnight. H/H 8.1/24.5. Cardiology would like her to have an EGD before anticoagulating her. Keep NPO and proceed with EGD today. Supervising Physician Co-Signing Physician Notes Macrocytic anemia. Feels well today. Reviewed with cardiology. With a history of coffee emesis which may have been related to ingested coffee and use of aspirin and Plavix concern for potential upper GI bleeding present. They may change her anticoagulation based on a bout of A-fib with the introduction of Xarelto and/or Eliquis. Endoscopy to evaluate risk of bleeding and decisions for anticoagulation reviewed with patient and daughter. Agreeable to proceed. Risks of the procedure including bleeding perforation discussed informed consent obtained
[2024-12-05] MEDS: ASPIRIN 81 MG ECTAB PO SCH (10:18)
--- NOTE | 2024-12-05 10:23 | Communication Note ---
Date of Service: December 05, 2024 EGD note Small sliding-type Hill hernia. Multiple punctate gastric erosions without bleeding. Likely reflects history of aspirin use. These are low risk of bleeding if anticoagulation required or to be continued. If she is to remain on aspirin or dual anticoagulation therapy I would add a PPI long-term. Biopsies include H. pylori.
--- NOTE | 2024-12-05 10:47 | GI REPORT ---
[facility] Patient: ESTRELLA CHENEY : 1945 Sex at : Female Age: 79 Years Procedure: Upper GI endoscopy Date: 12/05/2024 Attending Physician: Taran Alexis MD Referring MD: Len Owens Indications: - Suspected upper gastrointestinal bleeding Medications: - Monitored Anesthesia Care Complications: - No immediate complications. Estimated Blood Loss: - Estimated blood loss was minimal. Procedure: - The egd scope was introduced through the mouth and advanced to the second part of the duodenum. - The upper GI endoscopy was accomplished without difficulty. - The patient tolerated the procedure well. Findings: - A small hiatal hernia was present. - Multiple small erosions with no bleeding and no stigmata of recent bleeding were found in the gastric antrum. Biopsies were taken with a cold forceps for histology. histology - The examined duodenum was normal. Impression: - Small hiatal hernia. - Erosive gastropathy with no bleeding and no stigmata of recent bleeding. Biopsied. - Normal examined duodenum. - Few gastric erosions related to aspirin. Rule out H. pylori. These are low risk lesions for significant bleeding. If patient to remain on aspirin with anticoagulation change I would treat her with a PPI. If to be on dual antiplatelet therapy should probably be on a PPI anyway based on Compass trial findings. If to be on Xarelto or Eliquis alone may be able to do without a PPI. Recommendation: Procedure Code(s): - 80054, Esophagogastroduodenoscopy, flexible, transoral; with biopsy, single or multiple Diagnosis Code(s): - K44.9, Diaphragmatic hernia without obstruction or gangrene - K31.89, Other diseases of stomach and duodenum CPT(R) - 2023 copyright [employer]. All Rights Reserved. The CPT codes, CCI edits and ICD codes generated are intended as suggestions and were generated based on input data. These codes are preliminary and upon nurse transplant review may be revised to meet current compliance and payer requirements. The provider is responsible for the final determination of appropriate codes, and modifiers. Taran Alexis MD This document has been electronically signed. Note Initiated:12/05/2024 Note Completed:12/05/2024 10:46 AM \\[email or web address]\[email or web address]\Results\[email or web address]\[id number]
--- NOTE | 2024-12-05 14:20 | Hospitalist Progress Note ---
Date of Service December 05, 2024 Assessment & Plan (1) Symptomatic anemia: (2) Generalized weakness: (3) Hypertension: (4) NSTEMI (non-ST elevated myocardial infarction): Plan per previous hospitalist notes with addendum: 79 year old female that presents to the ED with SOB and substernal chest pressure that has resolved. Two episodes of coffee-ground emesis over past 24 hours. H/O AMI in 2016 s/p JOSEPH to prox RCA; continues on DAPT. Admit for symptomatic anemia workup and bradycardia as outlined below. Symptomatic Anemia Thrombocytopenia Emesis x 2; coffee-ground past 24 hours Hgb ED 8.8; baseline 13.0 from 12/2023 No leukocytosis H/O C-scoope Q 3 years for polyps; no recollection of biospy or interventions No H/O EGD. Trend H&H Q6 x 3 CXR negative Anemia panel ordered T/C and blood consent obtained FOBT ordered; denies hematochezia Protonix 40 mg IV BID started in ED Keep n.p.o. for now; pending GI Consult Lymes pending GI consult placed; discussed via [place] Text 12/05 Hemoglobin 8.8, 8.1, repeat pending Iron level 79 Vitamin B12 more than 1500 Folate level ordered Platelet count also noted to be trending down from 100k to 77K Peripheral smear ordered hematology consult placed Status post EGD today Small hiatal hernia. - Erosive gastropathy with no bleeding and no stigmata of recent bleeding. Biopsied. - Normal examined duodenum. - Few gastric erosions related to aspirin. Rule out H. pylori. These are low risk lesions for significant bleeding. If patient to remain on aspirin with anticoagulation change I would treat her with a PPI. If to be on dual antiplatelet therapy should probably be on a PPI anyway based on Compass trial findings. If to be on Xarelto or Eliquis alone may be able to do without a PPI. New onset atrial fibrillation Bradycardia - Cardiology service, Dr. Torre consulted - "initial findings suggestive of atrial fibrillation, now with findings of sinus rhythm with first-degree AV block, and intermittent Mobitz type I second- degree AV block.. " - Hold metoprolol for now, resume aspirin, hold Plavix Continue to monitor closely - Lyme screen negative Anaplasma and babesiosis DNA pending given anemia, thrombocytopenia, will start on empiric ceftriaxone Continue close monitoring with telemetry Chest pain: HTN: Substernal chest pressure noted this AM with SOB ECG reveals AF with LBBB; patient with motion; possible PAC's when reviewed; repeat ECG now. Troponin neg x2 Mg+ 2.3, K+ 4.5; monitor labs in AM TSH ordered Last ECHO 2021: EF 65-69%, LVWM normal, no valve abnormalities; Repeat ECHO Orthostatic BPs ordered Normotensive in ED Takes Amlodipine 10 mg QHS and Losartan 25 mg QAM; continue for now as less affect on HR Takes Metoprolol 25 mg daily; hold for now 12/05 Denies chest pain today CAD: History of AMI: s/p JOSEPH --> prox RCA in 2015 Follows with [facility]; last appt 2021 Reviewed last note from 2021; was instructed to continue DAPT Takes ASA and Plavix;Resume aspirin for now as per cardiology service NIDDM2: Metformin was stopped 05/2024 Last A1C 05/2024 8.4; repeat 9.5 Takes Farxiga, Trulicity, and Glipizide; hold for now and place on ACHS FSBS SSI HLD: Takes high-dose Atovastatin; continue Disposition: PCP: Dr. Owens Code Status: Full VTE Prophylaxis: Teds and SCDs for now plan of care discussed with patient and her daughters over the phone in detail and at length all questions answered they are understanding, agreeable, comfortable with the plan of care Admission and Anticipated Discharge Date Admission Date: December 04, 2024 Subjective seen sitting up in bed, comfortable, not in distress States that she feels fine overall No abdominal pain, nausea or vomiting, no BMs yet today No chest pain, palpitations, dizziness, shortness of breath no fever/chills No other new symptoms Review of Systems Review of Systems: all noted and negative except for above Physical Exam Physical Exam: General- oriented x 3, not in distress, speaks in sentences with no effort or accessory muscle use Eyes- anicteric Neck- no JVD Lungs- clear breath sounds bilaterally, no rales/wheezes Heart- normal rate, regular rhythm; no murmurs Abdomen- normal bowel sounds, nondistended, soft, nontender Extremities- no pretibial edema, no calf tenderness Neuro- alert, oriented x 3; no gross focal neurologic deficits Skin- warm & dry Results & Data Results & Data Vital Signs (Past 12 Hours) Vital Signs Temp Pulse Pulse Pulse Resp BP Pulse Ox 12/05/24 11:41 36.4 C L 77 18 131/71 97 12/05/24 10:56 36.9 C 82 16 136/51 L 95 12/05/24 10:41 36.9 C 81 16 132/53 L 96 12/05/24 10:26 36.9 C 80 16 123/55 L 97 12/05/24 09:59 36.9 C 84 16 162/67 H 97 12/05/24 08:35 12/05/24 08:28 36.9 C 72 18 133/73 96 12/05/24 07:27 68 12/05/24 04:00 36.6 C 60 18 128/65 94 O2 Del Method 12/05/24 11:41 Room Air 12/05/24 10:56 Room Air 12/05/24 10:41 Room Air 12/05/24 10:26 Room Air 12/05/24 09:59 Room Air 12/05/24 08:35 Room Air 12/05/24 08:28 Room Air 12/05/24 07:27 12/05/24 04:00 Room Air all noted and reviewed including below
--- NOTE | 2024-12-05 14:53 | Cardiology Progress Note ---
Date of Service December 05, 2024 Assessment & Plan (1) Chest pain: (2) Atrial fibrillation with slow ventricular response: (3) Symptomatic anemia: (4) Thrombocytopenia: Plan Assessment: 79 year old female with prior history of CAD s/p PCI with JOSEPH x2 2016 on DAPT presents with acute onset N/V, weakness, chest discomfort, shortness of breath and weakness. Patient initially found to be in what appeared to be a rate controlled atrial fibrillation. Further observation on telemetry overnight reveals development of sinus rhythm with long first-degree AV block and intermittent Mobitz type I second-degree AV block (Wenckebach block). No prolonged bradycardia and ventricular rate is in the 60s to 70s off of metoprolol present. On telemetry the patient was found to have an 11 beat run of wide-complex tachycardia observed on 12/04/2024 at 2205. Is difficult to interpret if this is artifactual or not. The patient recollects no symptoms during that time but does note that she had some trouble keeping her telemetry leads on while sleeping last night. Plan: 1. Chest pain - History of CAD with prior PCI dating back to 2016 -Atypical in characteristic, intermittent but resolved prior to ER visit. No acute ST-T wave changes on EKG; however, patient is found to be in atrial fibrillation which is new for her. -High sensitivity troponin negative x2 -Echocardiogram without any regional wall motion abnormalities -Continue to monitor off metoprolol for now 2. Bradycardia, initial findings suggestive of atrial fibrillation, now with findings of sinus rhythm with first-degree AV block, and intermittent Mobitz t ype I second-degree AV block.. -[id number] score is 5 (HTN, age, DM, and gender). -Patient underwent EGD earlier today with areas of mild gastric retention but no source of active bleeding. Hemoglobin has declined just under 5 points in the last calendar year and now has thrombocytopenia with platelet count of 77,000 today. -Lyme screen and anaplasmosis screen negative, await finalization of Babesia screen -Hold off on systemic anticoagulation -Resume aspirin 81 mg daily with Protonix. -For hospital treatment with clopidogrel discontinued -At the time of patient's initial myocardial infarction event in 2014, the obtuse marginal lesion was felt to be the culprit for the patient also was found to have a 90% stenosis of the proximal right coronary artery. She had developed 2: 1 heart block at that time which improved after technically difficult PCI/stenting of the RCA. The patient's bradycardia could certainly be atypical manifestation of ischemia. The patient however has not had any recent anginal symptoms prior to 2 days ago. Troponin negative. No regional wall motion abnormalities. Not an ideal time to pursue an ischemic workup with anemia and thrombocytopenia. 3. Symptomatic anemia 4. Thrombocytopenia -Iron studies within normal limits, anemia appears microcytic -Lyme screen and anaplasmosis screen negative, await finalization of Babesia screen --Continue observation off of metoprolol, with addition of aspirin, PPI, and further observation of hemoglobin and platelet count. I spent a total of 50 minutes on the date of service in preparation, delivery, documentation of the care provided to the patient excluding any time spent in the performance of separately billed services. Cheryl Torre DO Admission and Anticipated Discharge Date Admission Date: December 04, 2024 Subjective Patient seen cardiology follow-up. Tolerated EGD well today without difficulty. Denies any shortness of breath, chest pain, palpitations, or near syncope. Physical Exam Constitutional: well developed and well nourished; no acute distress and not ill appearing Neck: normal visual inspection and trachea midline Respiratory: normal respiratory effort; no cough Auscultation: lungs clear to auscultation bilaterally; no crackles, no rales, no rhonchi and no wheezes Cardiovascular: Rate/Rhythm: + bradycardic and + irregularly irregular Heart Sounds: normal S1 and normal S2; no murmur Vessels: dorsalis pedis pulses present; no JVD Extremities: no edema Skin: no rashes, warm and dry Psychiatric: A+Ox3, euthymic affect Results & Data Vital Signs (Past 12 Hours) Vital Signs Temp Pulse Pulse Pulse Resp BP Pulse Ox 12/05/24 11:41 36.4 C L 77 18 131/71 97 12/05/24 10:56 36.9 C 82 16 136/51 L 95 12/05/24 10:41 36.9 C 81 16 132/53 L 96 12/05/24 10:26 36.9 C 80 16 123/55 L 97 12/05/24 09:59 36.9 C 84 16 162/67 H 97 12/05/24 08:35 12/05/24 08:28 36.9 C 72 18 133/73 96 12/05/24 07:27 68 08/21/25 04:00 36.6 C 60 18 128/65 94 O2 Del Method 12/05/24 11:41 Room Air 12/05/24 10:56 Room Air 12/05/24 10:41 Room Air 12/05/24 10:26 Room Air 12/05/24 09:59 Room Air 12/05/24 08:35 Room Air 12/05/24 08:28 Room Air 12/05/24 07:27 12/05/24 04:00 Room Air Laboratory Results Cardiac Enzymes 12/04/24 Range/Units 15:37 B-Natriuretic Peptide 604 H (0-100) pg/ml Coagulation 12/04/24 Range/Units 15:37 B-Natriuretic Peptide 604 H (0-100) pg/ml CBC 12/05/24 Range/Units 06:28 WBC 6.84 (4.8-10.8) K/ul RBC 2.39 L (4.20-5.40) M/uL Hgb 8.1 L (12.0-16.0) g/dl Hct 24.5 L (37.0-47.0) % Plt Count 77 L (130-400) K/uL Neut # (Auto) 3.10 (1.40-6.50) K/uL Lymph # (Auto) 1.79 (1.20-3.40) K/uL [place] # (Auto) 1.89 H (0.11-0.59) K/uL Eos # (Auto) 0.03 (0.00-0.50) K/uL Baso # (Auto) 0.01 (0.00-0.20) K/uL Comprehensive Metabolic Panel 12/05/24 Range/Units 06:27 Sodium 138 (136-145) mmol/L Potassium 4.3 (3.5-5.1) mmol/L Chloride 107 (98-107) mmol/L Carbon Dioxide 24 (21-32) mmol/L BUN 22 (6-23) mg/dl Creatinine 0.83 (0.6-1.2) mg/dl Glucose 156 H (70-99(Fasting)) mg/dl Calcium 8.7 (8.6-10.3) mg/dl Intake and Output 12/04/24 12/05/24 12/05/24 22:59 06:59 14:59 Other: Other Intake Source NPO Weight 84.1 kg 84.1 kg Weight Measurement Method Built in Bedscale Patient Weight 12/06/24 06:59 Weight 84.1 kg Coding Level of Care Code 55088 SUB INP/OBS CARE 3/50MIN History Comprehensive Exam Comprehensive Medical Decision Making High Complexity Diagnoses Chest pain R07.9 Atrial fibrillation with slow ventricular response I48.91 Symptomatic anemia D64.9 Thrombocytopenia D69.6
[2024-12-05 16:58] LABS: Hematocrit (blood only) 26.1 % (37.0-47.0); Hemoglobin 8.8 g/dl (12.0-16.0)
[2024-12-05 17:16] LABS: Alanine Aminotransferase 16.0 U/L (7-52); Alkaline Phosphatase 69.0 U/L (34-104); Bilirubin,Total 1.1 mg/dl (0.2-1.0); Total Protein 6.4 gm/dl (6.0-8.3)
[2024-12-05] MEDS: cefTRIAXone SODIUM 2,000 MG/50 ML BAG IV SCH (18:10)
--- NOTE | 2024-12-05 18:21 | Anesthesiology Progress Note ---
Date of Service December 05, 2024 Anesthesia Post Procedure Vital Signs Vital Signs: Temp Pulse Pulse Pulse Resp BP BP 12/05/24 17:16 98.2 F 77 17 135/69 12/05/24 13:05 92 H 12/05/24 11:41 97.5 F L 77 18 131/71 12/05/24 10:56 98.4 F 82 16 136/51 L 12/05/24 10:41 98.4 F 81 16 132/53 L 12/05/24 10:26 98.4 F 80 16 123/55 L 12/05/24 09:59 98.4 F 84 16 162/67 H 12/05/24 08:35 12/05/24 08:28 98.4 F 72 18 133/73 12/05/24 07:27 68 12/05/24 04:00 97.9 F 60 18 128/65 12/05/24 00:00 98.1 F 77 18 135/64 12/04/24 22:59 63 12/04/24 19:45 98.2 F 72 18 137/69 Pulse Ox O2 Del Method 12/05/24 17:16 93 Room Air 12/05/24 13:05 12/05/24 11:41 97 Room Air 12/05/24 10:56 95 Room Air 12/05/24 10:41 96 Room Air 12/05/24 10:26 97 Room Air 12/05/24 09:59 97 Room Air 12/05/24 08:35 Room Air 12/05/24 08:28 96 Room Air 12/05/24 07:27 12/05/24 04:00 94 Room Air 12/05/24 00:00 95 Room Air 12/04/24 22:59 12/04/24 19:45 94 Room Air Transfer of Care Handoff Completed per policy Notes Mental Status: alert / awake / arousable and participated in evaluation Patient Amnestic to Procedure: Yes Nausea / Vomiting: adequately controlled Pain: adequately controlled Airway Patency, RR, SpO2: stable & adequate BP & HR: stable & adequate Hydration State: stable & adequate Anesthetic Complications: no major complications apparent and Pt Satisfied with anesthetic care
[2024-12-05] MEDS ORDERED: Nursing to Pharmacy Communication SCH (19:45)
[2024-12-06 07:35] LABS: Hematocrit (blood only) 24.7 % (37.0-47.0); Hemoglobin 8.5 g/dl (12.0-16.0); Immature Granulocytes # (auto) 0.02 K/uL (0.01-0.20); Immature Granulocytes % (auto) 0.3 %; Mean Corpuscular Hemoglobin 34.7 pg (25.0-34.0); Mean Corpuscular Volume 100.8 fL (80.0-100.0); Platelet Count 87 K/uL (130-400); RDW Standard Deviation 57.4 fL (36.4-46.3); Red Blood Count 2.45 M/uL (4.20-5.40); White Blood Count 7.76 K/ul (4.8-10.8)
[2024-12-06 08:14] LABS: Alanine Aminotransferase 14.0 U/L (7-52); Albumin Globulin Ratio 1.1 (0.9-2); Alkaline Phosphatase 65.0 U/L (34-104); Anion Gap 4.0 (3-11); Bilirubin,Total 1.0 mg/dl (0.2-1.0); Blood Urea Nitrogen 19.0 mg/dl (6-23); Calcium 8.9 mg/dl (8.6-10.3); Carbon Dioxide 28.0 mmol/L (21-32); Chloride 104.0 mmol/L (98-107); Creatinine Clr Calc Pharmacy 65.9 ml/min; Globulin 3.0 gm/dl (2.5-4.0); Glucose 143.0 mg/dl (70-99(Fasting)); Magnesium 2.1 mg/dl (1.7-2.4); Potassium 4.2 mmol/L (3.5-5.1); Sodium 136.0 mmol/L (136-145); Total Protein 6.4 gm/dl (6.0-8.3)
[2024-12-06] MEDS: LANTUS PER UNIT CHARGE SQ SCH (09:37)
[2024-12-06] MEDS: ADVANCED PROBIOTIC 625 MG CAPSULE PO SCH (09:39)
--- NOTE | 2024-12-06 10:57 | Hospitalist Progress Note ---
Date of Service December 06, 2024 Assessment & Plan (1) Symptomatic anemia: (2) Generalized weakness: (3) Hypertension: (4) NSTEMI (non-ST elevated myocardial infarction): Plan per previous hospitalist notes with addendum: 79 year old female that presents to the ED with SOB and substernal chest pressure that has resolved. Two episodes of coffee-ground emesis over past 24 hours. H/O AMI in 2016 s/p JOSEPH to prox RCA; continues on DAPT. Admit for symptomatic anemia workup and bradycardia as outlined below. Symptomatic Anemia Thrombocytopenia Emesis x 2; coffee-ground past 24 hours Hgb ED 8.8; baseline 13.0 from 12/2023 No leukocytosis H/O C-scoope Q 3 years for polyps; no recollection of biospy or interventions No H/O EGD. Trend H&H Q6 x 3 CXR negative Anemia panel ordered T/C and blood consent obtained FOBT ordered; denies hematochezia Protonix 40 mg IV BID started in ED Keep n.p.o. for now; pending GI Consult Lymes pending GI consult placed; discussed via [place] Text 12/05 Hemoglobin 8.8, 8.1, repeat pending Iron level 79 Vitamin B12 more than 1500 Folate level ordered Platelet count also noted to be trending down from 100k to 77K Peripheral smear ordered hematology consult placed Status post EGD today Small hiatal hernia. - Erosive gastropathy with no bleeding and no stigmata of recent bleeding. Biopsied. - Normal examined duodenum. - Few gastric erosions related to aspirin. Rule out H. pylori. These are low risk lesions for significant bleeding. If patient to remain on aspirin with anticoagulation change I would treat her with a PPI. If to be on dual antiplatelet therapy should probably be on a PPI anyway based on Compass trial findings. If to be on Xarelto or Eliquis alone may be able to do without a PPI. 12/06 Hg 8.5-- stable overall since yesterday Plt trending up 77--> 87 Peripheral smear: The major findings include macrocytic anemia, thrombocytopenia, monocytosis and nucleated erythrocytes.Presuming that the monocytosis is not an acute phenomenon, the findings are worrisome for a myelodysplastic-myeloproliferative process, such as chronic myelomonocytic leukemia. - reviewed outpatient records last CBC Dec 2023: 8.4/13.8/282 last CBC with diff 2010: no monocytosis - active bleed at present unlikely Lyme screen negative, Anaplasmosis and Babesiosis pending--> on empiric Ceftriaxone IV Day 2 Hematology consulted New onset atrial fibrillation Bradycardia - Cardiology service, Dr. Torre consulted - converted to SR with 1st deg AV block yesterday - Hold metoprolol for now, resume aspirin, hold Plavix Continue to monitor closely - Lyme screen negative Anaplasma and babesiosis DNA pending given anemia, thrombocytopenia,on empiric ceftriaxone Continue close monitoring with telemetry Chest pain: HTN: Substernal chest pressure noted this AM with SOB ECG reveals AF with LBBB; patient with motion; possible PAC's when reviewed; repeat ECG now. Troponin neg x2 Mg+ 2.3, K+ 4.5; monitor labs in AM TSH ordered Last ECHO 2021: EF 65-69%, LVWM normal, no valve abnormalities; Repeat ECHO Orthostatic BPs ordered Normotensive in ED Takes Amlodipine 10 mg QHS and Losartan 25 mg QAM; continue for now as less affect on HR Takes Metoprolol 25 mg daily; hold for now 12/06 Denies chest pain since yesterday CAD: History of AMI: s/p JOSEPH --> prox RCA in 2016 Follows with [facility]; last appt 2021 Reviewed last note from 2021; was instructed to continue DAPT Takes ASA and Plavix; Resume aspirin for now as per cardiology service NIDDM2: Metformin was stopped 05/2024 Last A1C 05/2024 8.4; repeat 9.5 Takes Farxiga, Trulicity, and Glipizide; hold for now and place on ACHS FSBS SSI HLD: Takes high-dose Atovastatin; continue Disposition: PCP: Dr. Owens Code Status: Full VTE Prophylaxis: Teds and SCDs for now plan of care discussed with patient and her daughters\ [place] over the phone in detail and at length all questions answered they are understanding, agreeable, comfortable with the plan of care Admission and Anticipated Discharge Date Admission Date: December 04, 2024 Subjective seen resting in bed, comfortable, in good spirits very pleasant states she feels fine overall no abdominal pain, nausea no BM yet since yesterday no chest pain, dyspnea, palpitations, dizziness no signs of any bleeding no fever/chills no other symptoms Review of Systems Review of Systems: all noted and negative except for above Physical Exam Physical Exam: General- oriented x 3, not in distress, speaks in sentences with no effort or accessory muscle use Eyes- anicteric Neck- no JVD Lungs- clear breath sounds bilaterally, no rales/wheezes Heart- normal rate, regular rhythm; no murmurs Abdomen- normal bowel sounds, nondistended, soft, nontender Extremities- no pretibial edema, no calf tenderness Neuro- alert, oriented x 3; no gross focal neurologic deficits Skin- warm & dry Results & Data Results & Data Vital Signs (Past 12 Hours) Vital Signs Temp Pulse Pulse Resp BP BP Pulse Ox 12/06/24 08:17 36.6 C 78 18 149/76 H 94 12/06/24 07:16 79 12/06/24 03:11 36.9 C 81 18 163/67 H 96 12/05/24 22:49 36.8 C 80 18 112/64 99 O2 Del Method 12/06/24 08:17 Room Air 12/06/24 07:16 12/06/24 03:11 Room Air 12/05/24 22:49 Room Air all noted and reviewed including below
--- NOTE | 2024-12-06 10:59 | Pharmacy Report ---
Pharmacy Glycemic Short Note 2 - Date of Service December 06, 2024 - Glycemic Short BSG Results (Last 24 hours): 12/05/24 12/05/24 12/05/24 12:07 17:06 20:40 Glucose POC Glucose 162 H 194 H 215 H 12/06/24 12/06/24 06:59 07:53 Glucose 143 H POC Glucose 170 H OUTPATIENT ANTIDIABETIC REGIMEN: * Glipizide 10 mg PO BIDM * Dapagliflozin 10 mg PO qAM * Trulicity 4.5 mg SC weekly HbA1c: ordered for 12/05/24 ASSESSMENT: 12/06 * Patient received total of 26 units of insulin yesterday, of which 15 units were basal insulin * Fasting BSG 170 mg/dL - will provide slight increase in AM basal, continue with scale for HS * No change to CF/CR today 12/04 * ET is a 79 year old female presenting to ED w/ chest pain, shortness of breath, and coffee-ground emesis. Admitted for evaluation of these symptoms and anemia. * Pharmacy consulted for glycemic management (history of T2DM, on orals and GLP- 1 agonist as outpatient, HbA1c pending) * NPO for now pending GI evaluation PLAN FOR INPATIENT GLYCEMIC CONTROL: * Hold outpatient oral diabetes medications * Basal insulin * Lantus 10 units daily in AM * Lantus 0-5-10 units SC HS (see EHR for details) * Bolus insulin * NovoLog per scale ACHS or Q6hrs while NPO * Goal Range: Low 120 mg/dL - High 160 mg/dL * Correction Factor: 30 mg/dL/unit * Nutritional / Prandial insulin per carb ratio of 1 unit per 9 grams CHO consumed
[2024-12-06] MEDS: ACETAMINOPHEN 325 MG TAB PO PRN (11:36)
--- NOTE | 2024-12-06 14:45 | Cardiology Progress Note ---
Date of Service December 06, 2024 Assessment & Plan (1) Chest pain: (2) Atrial fibrillation with slow ventricular response: (3) Symptomatic anemia: (4) Thrombocytopenia: Plan Assessment: 79 year old female with prior history of CAD s/p PCI with JOSEPH x2 (OM culprit first , then staged procedure for proximal RCA stenosis same admission) 2016 on chronic DAPT presents with acute onset N/V, weakness, chest discomfort, shortness of breath and weakness. Patient initially found to be in what appeared to be a rate controlled atrial fibrillation. Further observation on telemetry overnight reveals development of sinus rhythm with long first-degree AV block and intermittent Mobitz type I second-degree AV block (Wenckebach block). No prolonged bradycardia and ventricular rate is in the 60s to 70s off of metoprolol present. On telemetry the patient was found to have an 11 beat run of wide-complex tachycardia observed on 12/04/2024 at 2205. Appearance suggestive of artifact. The patient recollects no symptoms during that time but does note that she had some trouble keeping her telemetry leads on while sleeping. Telemetry on 12/06/24 with SR , long first degree AV block in the 60s to 70s. No additional Wenkebach block. Plan: 1. Chest pain - History of CAD with prior PCI dating back to 2016 -Atypical in characteristic, intermittent but resolved prior to ER visit. No acute ST-T wave changes on EKG; however, patient is found to be in atrial fibrillation which is new for her. -High sensitivity troponin negative x2 -Echocardiogram without any regional wall motion abnormalities -Continue to monitor off metoprolol for now 2. Bradycardia, initial findings suggestive of atrial fibrillation, now with findings of sinus rhythm with first-degree AV block, and intermittent Mobitz type I second-degree AV block.. -[id number] score is 5 (HTN, age, DM, and gender). -Patient underwent EGD this admisison with areas of mild gastric retention but no source of active bleeding. Hemoglobin has declined just under 5 points in the last calendar year and now has thrombocytopenia with platelet count of 77- 87,000. -Lyme negative. -Hold off on systemic anticoagulation -Resume aspirin 81 mg daily with Protonix. -clopidogrel discontinued. -At the time of patient's initial myocardial infarction event in 2014, the obtuse marginal lesion was felt to be the culprit for the patient also was found to have a 90% stenosis of the proximal right coronary artery. She had developed 2: 1 heart block at that time which improved after technically difficult PCI/stenting of the RCA. The patient's bradycardia could certainly be atypical manifestation of ischemia. The patient however has not had any recent anginal symptoms prior to presentation. Troponin negative. No regional wall motion abnormalities. Not an ideal time to pursue an ischemic workup with anemia and thrombocytopenia. 3. Symptomatic anemia 4. Thrombocytopenia -Iron studies within normal limits, anemia appears microcytic -Lyme screen negative -final anaplasmosis ,Babesia results pending. On empiric treatment with IV Rocephin. --Continue observation off of metoprolol, with addition of aspirin, PPI, and further observation of hemoglobin and platelet count. --Agree with plans for hematology consult. --Will arrange 7 day [facility] to be place next week as an outpatient --Cardiology to sign off with recommendations as outlined. I spent a total of 50 minutes on the date of service in preparation, delivery, documentation of the care provided to the patient excluding any time spent in the performance of separately billed services. Cheryl Torre DO Admission and Anticipated Discharge Date Admission Date: December 04, 2024 Subjective Pt seen in cardiology follow up. Feeling well. Telemetry reveals SR with first degree AV block and PVCs. Physical Exam Constitutional: well developed and well nourished; no acute distress and not ill appearing Neck: normal visual inspection and trachea midline Respiratory: normal respiratory effort; no cough Auscultation: lungs clear to auscultation bilaterally; no crackles, no rales, no rhonchi and no wheezes Cardiovascular: Rate/Rhythm: + bradycardic and + irregularly irregular Heart Sounds: normal S1 and normal S2; no murmur Vessels: dorsalis pedis pulses present; no JVD Extremities: no edema Skin: no rashes, warm and dry Psychiatric: A+Ox3, euthymic affect Results & Data Vital Signs (Past 12 Hours) Vital Signs Temp Pulse Pulse Resp BP BP Pulse Ox 12/06/24 13:58 77 12/06/24 12:03 36.5 C 77 18 160/66 H 97 12/06/24 08:17 36.6 C 78 18 149/76 H 94 12/06/24 07:42 12/06/24 07:16 79 12/06/24 03:11 36.9 C 81 18 163/67 H 96 O2 Del Method 12/06/24 13:58 12/06/24 12:03 Room Air 12/06/24 08:17 Room Air 12/06/24 07:42 Room Air 12/06/24 07:16 12/06/24 03:11 Room Air Laboratory Results Abnormal lab results 12/05/24 12/05/24 12/05/24 Range/Units 15:56 16:04 17:06 RBC (4.20-5.40) M/uL Hgb 8.8 L (12.0-16.0) g/dl Hct 26.1 L (37.0-47.0) % MCV (80.0-100.0) fL MCH (25.0-34.0) pg RDW Std Deviation (36.4-46.3) fL RDW Coeff of Curtis (11.5-14.5) % Plt Count (130-400) K/uL Gila # (Auto) (0.11-0.59) K/uL BUN/Creatinine Ratio (10-20) Glucose (70-99(Fasting)) mg/dl POC Glucose 194 H (70-99) mg/dl Total Bilirubin 1.1 H (0.2-1.0) mg/dl Direct Bilirubin 0.3 H (0-0.2) mg/dl AST (13-39) U/L 12/05/24 12/06/24 12/06/24 Range/Units 20:40 06:59 07:53 RBC 2.45 L (4.20-5.40) M/uL Hgb 8.5 L (12.0-16.0) g/dl Hct 24.7 L (37.0-47.0) % MCV 100.8 H (80.0-100.0) fL MCH 34.7 H (25.0-34.0) pg RDW Std Deviation 57.4 H (36.4-46.3) fL RDW Coeff of Curtis 15.4 H (11.5-14.5) % Plt Count 87 L (130-400) K/uL Gila # (Auto) 2.01 H (0.11-0.59) K/uL BUN/Creatinine Ratio 24.7 H (10-20) Glucose 143 H (70-99(Fasting)) mg/dl POC Glucose 215 H 170 H (70-99) mg/dl Total Bilirubin (0.2-1.0) mg/dl Direct Bilirubin (0-0.2) mg/dl AST 12 L (13-39) U/L 12/06/24 Range/Units 11:50 RBC (4.20-5.40) M/uL Hgb (12.0-16.0) g/dl Hct (37.0-47.0) % MCV (80.0-100.0) fL MCH (25.0-34.0) pg RDW Std Deviation (36.4-46.3) fL RDW Coeff of Curtis (11.5-14.5) % Plt Count (130-400) K/uL Gila # (Auto) (0.11-0.59) K/uL BUN/Creatinine Ratio (10-20) Glucose (70-99(Fasting)) mg/dl POC Glucose 197 H (70-99) mg/dl Total Bilirubin (0.2-1.0) mg/dl Direct Bilirubin (0-0.2) mg/dl AST (13-39) U/L Coding Level of Care Code 09616 SUB INP/OBS CARE 3/50MIN Diagnoses Chest pain R07.9 Atrial fibrillation with slow ventricular response I48.91 Symptomatic anemia D64.9 Thrombocytopenia D69.6
--- NOTE | 2024-12-06 14:47 | Electrocardiogram Report ---
Test Reason : Blood Pressure : */* mmHG Vent. Rate : 82 BPM Atrial Rate : 82 BPM P-R Int : 302 ms QRS Dur : 138 ms QT Int : 426 ms P-R-T Axes : 33 -2 24 degrees QTcB Int : 497 ms Sinus rhythm with 1st degree A-V block Right bundle branch block Abnormal ECG When compared with ECG of 04-Dec-2024 22:59, (unconfirmed) Sinus rhythm is no longer with 2nd degree A-V block (Mobitz I) Confirmed by Pio Dodd ([id number]) on 12/06/2024 2:47:07 PM Referred By: REFERRED SELF Confirmed By: Pio Dodd
--- NOTE | 2024-12-06 15:15 | Electrocardiogram Report ---
Test Reason : Blood Pressure : */* mmHG Vent. Rate : 50 BPM Atrial Rate : * BPM P-R Int : * ms QRS Dur : 138 ms QT Int : 516 ms P-R-T Axes : * 11 59 degrees QTcB Int : 470 ms Atrial fibrillation with slow ventricular response Right bundle branch block Abnormal ECG When compared with ECG of 04-Dec-2024 08:58, (unconfirmed) Criteria for Inferior infarct are no longer Present T wave inversion no longer evident in Inferior leads Confirmed by Pio Dodd ([id number]) on 12/06/2024 3:15:09 PM Referred By: REFERRED SELF Confirmed By: Pio Dodd
--- NOTE | 2024-12-06 17:45 | Communication Note ---
Date of Service: December 06, 2024 Biopsy negative for H. pylori. If aspirin to be continued long-term PPI. If dual platelet therapy long-term PPI. If aspirin to be discontinued 2 to 4 weeks of PPI can be discontinued.
--- NOTE | 2024-12-06 21:12 | Oncology Consultation ---
Date of Consultation December 06, 2024 Assessment & Plan (1) Macrocytic anemia: (2) Symptomatic anemia: (3) Thrombocytopenia: (4) Generalized weakness: (5) Smoker: (6) Coronary artery disease: (7) Diabetes mellitus: (8) Atrial fibrillation with slow ventricular response: (9) NSTEMI (non-ST elevated myocardial infarction): Plan 79 year old female with thrombocytopenia, macrocytic anemia and elevated absolute monocyte count - suspicious for CMML / myelodysplastic syndrome or o ther hematologic malignancy 70 year smoking history DM 2 HTN Dyslipidemia Coronary artery disease - 2 stents NSTEMI PLAN: I discussed with the patient and her family the possible diagnosis of a bone marrow failure state and malignancy I advised them that the patient will need several blood tests including molecular studies along with a CT guided bone marrow aspirate and biopsy I discussed what the bone marrow biopsy would entail and how it is performed. We can pursue this as an outpatient We will check US abdomen with attn to liver and spleen urged smoking cessation. Recommend follow up in the cancer center within a week of hospital discharge ECOG 1. Pt amenable with the plan. History of Present Illness Reason for Consultation: Macrocytic anemia Requesting Physician: Reilly Esquivel MD Attending Physician: Reilly Esquivel MD History of Present Illness Patient is a 79 yo female admitted for symptomatic macrocytic anemia. The patient admits to symptoms of dizziness and "not being able to lift her legs." She had an episode of vomiting 5 minutes after drinking coffee. Emesis was brown. No coffee grounds. She did not have abdominal pain. The following morning she had another episode of emesis. No bleeding or bruising. No history of blood transfusions noted. Hemoccult in the ED documented by Dr. Cervantes was negative. No melena. No hematochezia. No PUD history. Infrequent NSAID use. H/H 8.8/26.7. MCV 101.9. Last colonoscopy in January 2024. She notes a polyp. She underwent EGD on 12/05/2024 with biopsy taken. small hiatal hernia. No ob vious source of bleed. She has a history of coronary artery disease with 2 stents placed in 2019. She has remained on plavix and aspirin since that time. She does see her sander setter annually. She has new onset atrial fibrillation here. Cardiology following. She has annual mammograms. She has a past medical history significant for DM 2, HTN, dyslipidemia, as well. She has a 70 pack year smoking history - per the patient she now smokes 8 cigarettes a day. Denies history of alcohol or illicit drug use. She is . She previously worked in restaurants. She admits to a family history of cancer. Her sister had breast cancer. Her maternal aunts had breast cancer as well. Allergies Allergy/AdvReac Type Severity Reaction Status Date / Time lisinopril AdvReac Mild cough Verified 12/04/24 11:25 Home Medications Medication Instructions Recorded Confirmed Type aspirin 81 mg tablet,delayed 81 mg PO QAM 07/29/18 12/05/24 History release atorvastatin 80 mg tablet 80 mg PO HS 07/29/18 12/05/24 History clopidogrel 75 mg tablet 75 mg PO QAM 07/29/18 12/05/24 History glipizide 10 mg tablet, extended 10 mg PO BIDM 07/29/18 12/05/24 History release 24 hr losartan 25 mg tablet 25 mg PO QAM 07/29/18 12/05/24 History metoprolol succinate 25 mg 25 mg PO QAM 07/29/18 12/05/24 History tablet,extended release 24 hr nitroglycerin 0.4 mg sublingual 0.4 mg sublingual UD 07/29/18 12/05/24 History tablet vit C 250 mg-vit E 90 mg-zinc 40 1 tab PO BID 07/29/18 12/05/24 History mg-copper 1 [id number] capsule (PreserVision AREDS-2) amlodipine 10 mg tablet 10 mg PO HS 12/04/24 12/05/24 History dapagliflozin propanediol 10 mg 10 mg PO QAM 12/04/24 12/05/24 History tablet (Farxiga) dulaglutide 4.5 mg/0.5 mL 4.5 mg subcut WK 12/04/24 12/05/24 History subcutaneous pen injector (Trulicity) nystatin 100,000 unit/gram topical 1 applic topical BID PRN Flare 12/04/24 12/05/24 History ointment thiamine HCl (vitamin B1) 250 mg 250 mg PO DAILY 12/04/24 12/05/24 History tablet (Vitamin B-1) triamcinolone acetonide 0.1 % 1 applic topical BID PRN Flare 12/04/24 12/05/24 History topical ointment Patient History Social History Smoking Status: Current every day smoker Tobacco Type: Cigarettes Second Hand Exposure: Yes; Do You Dip or Chew Tobacco: No; Tobacco Cessation Education Requested by Patient: No Hx Alcohol Use: Yes Alcohol type: beer Hx Substance Use: No Preferred Language: Maori Communication Ability: Effective Plan Examiner Required: No Beliefs That Will Affect Care: None Current Living Situation: Alone Other Information That Helps Us Care for You: No Feels Safe at Home: Yes Safety Concerns: Feels Safe At This Time Assistive Devices: Cane and Walker Review of Systems Review of Systems: Constitutional: No Weight Change, No Fever, No Chills, No Night Sweats, No Fatigue, No Malaise ENT/Mouth: No Hearing Changes, No Ear Pain, No Nasal Congestion, No Sinus Pain, No Hoarseness, No sore throat, No Rhinorrhea, No Swallowing Difficulty Eyes: No Eye Pain, No Swelling, No Redness, No Foreign Body, No Discharge, No Vision Changes Cardiovascular: No Chest Pain, No SOB, No PND, No Dyspnea on Exertion, No Orthopnea, No Claudication, No Edema, No Palpitations Respiratory: No Cough, No Sputum, No Wheezing, No Smoke Exposure, No Dyspnea Gastrointestinal: No Nausea, No Vomiting, No Diarrhea, No Constipation, No Pain, No Heartburn, No Anorexia, No Dysphagia, No Hematochezia, No Melena, No Flatulence, No Jaundice Genitourinary: No Dysmenorrhea, No DUB, No Dyspareunia, No Dysuria, No Urinary Frequency, No Hematuria, No Urinary Incontinence, No Urgency, No Flank Pain, No Urinary Flow Changes, No Hesitancy Musculoskeletal: No Arthralgias, No Myalgias, No Joint Swelling, No Joint Stiffness, No Back Pain, No Neck Pain, No Injury History Skin: No Skin Lesions, No Pruritis, No Hair Changes, No Breast/Skin Changes, No Nipple Discharge Neuro: No Weakness, No Numbness, No Paresthesias, No Loss of Consciousness, No Syncope, No Dizziness, No Headache, No Coordination Changes, No Recent Falls Psych: No Anxiety/Panic, No Depression, No Insomnia, No Personality Changes, No Delusions, No Rumination, No SI/HI/AH/VH, No Social Issues, No Memory Changes, No Violence/Abuse Hx., No Eating Concerns Heme/Lymph: No Bruising, No Bleeding, No Transfusions History, No Lymphadenopathy Endocrine: No Polyuria, No Polydipsia, No Temperature Intolerance Physical Exam Physical Exam: VITALS: Reviewed. WEIGHT/BMI reviewed. GEN: Healthy appearing, well-developed, NAD. PSYCH: Good Judgment. AOx3. Normal memory, mood, and affect. HEENT -Head: NC/AT; -Eyes: PERRL, EOMI. No discharge or redn ess; -Ears: External ears are normal. Normal TMs. -Nose: Normal nares. -Mouth and throat: MMM. Normal gums, muc byron, palate,. Good dentition. NECK: Supple, with no masses. CV: RRR, no m/r/g. LUNGS: CTAB, no w/r/c. ABD: Soft, NT/ND, NBS, no masses or organomegaly. : N/A SKIN: Warm, well perfused. No skin rashes or abnormal lesions. MSK: No deformities, Normal gait. EXT: No clubbing, cyanosis, or edema. NEURO: Ambulating with no limitations. Normal muscle strength and tone. No focal deficits. Results & Data Vital Signs (Past 12 Hours) Vital Signs Temp Pulse Pulse Resp BP Pulse Ox O2 Del Method 12/06/24 18:52 36.8 C 81 18 153/56 H 95 Room Air 12/06/24 16:00 76 18 153/61 H 99 Room Air 12/06/24 13:58 77 12/06/24 12:03 36.5 C 77 18 160/66 H 97 Room Air Diagnostic Findings Laboratory Results - last 24 hr 12/05/24 12/06/24 12/06/24 06:28 06:59 07:53 WBC 7.76 RBC 2.45 L Hgb 8.5 L Hct 24.7 L MCV 100.8 H MCH 34.7 H MCHC 34.4 RDW Std Deviation 57.4 H RDW Coeff of Curtis 15.4 H Plt Count 87 L MPV 11.3 Immature Gran % (Auto) 0.3 Neut % (Auto) 52.3 Lymph % (Auto) 21.0 Starr % (Auto) 25.9 Eos % (Auto) 0.4 Baso % (Auto) 0.1 Neut # (Auto) 4.06 Lymph # (Auto) 1.63 Starr # (Auto) 2.01 H Eos # (Auto) 0.03 Baso # (Auto) 0.01 Immature Gran # (Auto) 0.02 Absolute Nucleated RBC 0.11 Nucleated RBC % (auto) 1.4 Peripher Smr Path Cons Sodium 136 Potassium 4.2 Chloride 104 Carbon Dioxide 28 Anion Gap 4 BUN 19 Creatinine 0.77 Est Cr Clr Drug Dosing 65.9 eGFR 78.91 BUN/Creatinine Ratio 24.7 H Glucose 143 H POC Glucose 170 H Calcium 8.9 Magnesium 2.1 Total Bilirubin 1.0 AST 12 L ALT 14 Alkaline Phosphatase 65 Total Protein 6.4 Albumin 3.4 Globulin 3.0 Albumin/Globulin Ratio 1.1 12/06/24 12/06/24 12/06/24 11:50 16:59 19:51 WBC RBC Hgb Hct MCV MCH MCHC RDW Std Deviation RDW Coeff of Curtis Plt Count MPV Immature Gran % (Auto) Neut % (Auto) Lymph % (Auto) Starr % (Auto) Eos % (Auto) Baso % (Auto) Neut # (Auto) Lymph # (Auto) Starr # (Auto) Eos # (Auto) Baso # (Auto) Immature Gran # (Auto) Absolute Nucleated RBC Nucleated RBC % (auto) Peripher Smr Path Cons Sodium Potassium Chloride Carbon Dioxide Anion Gap BUN Creatinine Est Cr Clr Drug Dosing eGFR BUN/Creatinine Ratio Glucose POC Glucose 197 H 123 H 219 H Calcium Magnesium Total Bilirubin AST ALT Alkaline Phosphatase Total Protein Albumin Globulin Albumin/Globulin Ratio
--- NOTE | 2024-12-07 00:54 | Ultrasound Report ---
Exam(s): US ABDOMEN LIMITED EXAM: US Abdomen Limited, Right Upper Quadrant CLINICAL HISTORY: Assess liver and spleen - need measurements/MDS. TECHNIQUE: Real-time ultrasound of the right upper quadrant with image documentation. COMPARISON: No relevant prior studies available. FINDINGS: Liver: The liver measures 16.8 cm. Coarse echogenicity of the liver may relate to fatty infiltration and/or hepatocellular dysfunction. No intrahepatic bile duct dilation. No hepatic mass. Spleen: The spleen measures 11.0 cm. Echogenic foci likely represent chronic granulomatous disease. IMPRESSION: 1. The spleen measures 11.0 cm. 2. The liver measures 16.8 cm. Coarse echogenicity of the liver may relate to fatty infiltration and/or hepatocellular dysfunction. Electronically signed by: Alyssia Del Valle MD 12/07/24 00:53 AM
[2024-12-07 08:14] LABS: Hematocrit (blood only) 25.5 % (37.0-47.0); Hemoglobin 8.5 g/dl (12.0-16.0); Mean Corpuscular Hemoglobin 33.5 pg (25.0-34.0); Mean Corpuscular Volume 100.4 fL (80.0-100.0); Platelet Count 92 K/uL (130-400); RDW Standard Deviation 56.8 fL (36.4-46.3); Red Blood Count 2.54 M/uL (4.20-5.40)
[2024-12-07 08:28] LABS: Alanine Aminotransferase 11.0 U/L (7-52); Albumin Globulin Ratio 1.1 (0.9-2); Alkaline Phosphatase 72.0 U/L (34-104); Anion Gap 6.0 (3-11); Bilirubin,Total 0.8 mg/dl (0.2-1.0); Blood Urea Nitrogen 19.0 mg/dl (6-23); Calcium 9.0 mg/dl (8.6-10.3); Carbon Dioxide 27.0 mmol/L (21-32); Chloride 105.0 mmol/L (98-107); Creatinine Clr Calc Pharmacy 64.1 ml/min; Globulin 3.1 gm/dl (2.5-4.0); Glucose 176.0 mg/dl (70-99(Fasting)); Immunoglobulin A 277.2 mg/dl (70-400); Immunoglobulin G 692.5 mg/dl (635-1741); Immunoglobulin M 57.2 mg/dl (45-281); Potassium 4.4 mmol/L (3.5-5.1); Sodium 138.0 mmol/L (136-145); Total Protein 6.6 gm/dl (6.0-8.3); Uric Acid 4.0 mg/dl (2.6-7.2)
[2024-12-07 08:33] LABS: White Blood Count 8.63 K/ul (4.8-10.8)
[2024-12-07 08:47] LABS: Ferritin 250.8 ng/ml (8-388)
--- NOTE | 2024-12-07 09:05 | Electrocardiogram Report ---
Test Reason : Blood Pressure : */* mmHG Vent. Rate : 63 BPM Atrial Rate : * BPM P-R Int : * ms QRS Dur : 140 ms QT Int : 476 ms P-R-T Axes : * -23 -11 degrees QTcB Int : 487 ms Atrial fibrillation Right bundle branch block Inferior infarct , age undetermined Abnormal ECG When compared with ECG of 29-Jul-2018 11:11, Atrial fibrillation has replaced Sinus rhythm Right bundle branch block has replaced Incomplete right bundle branch block Confirmed by Pio Dodd ([id number]) on 12/07/2024 9:04:37 AM Referred By: REFERRED SELF Confirmed By: Pio Dodd
[2024-12-07 09:28] LABS: ALC (manual) 1.98 K/uL (1.2-3.4); ANC (manual) 4.66 K/uL (1.4-6.5); Ovalocytes 1+; Polychromasia 1+; Reticulocytes # 0.040 10^6/uL (0.020-0.100)
[2024-12-07] MEDS: PROPOFOL IV EMULSION 10 MG/ML 20 ML VIAL IV ONE (10:18)
[2024-12-07 11:21] VITALS: RESP 20
[2024-12-07 11:42] LABS: Hep B Surface Ag with confirm Negative (Negative)
[2024-12-07 15:19] VITALS: TEMP 97.9; O2SAT 97
--- NOTE | 2024-12-07 16:42 | Hospitalist Progress Note ---
Date of Service December 07, 2024 Assessment & Plan (1) Symptomatic anemia: (2) Generalized weakness: (3) Hypertension: (4) NSTEMI (non-ST elevated myocardial infarction): Plan per previous hospitalist notes with addendum: 79 year old female that presents to the ED with SOB and substernal chest pressure that has resolved. Two episodes of coffee-ground emesis over past 24 hours. H/O AMI in 2016 s/p JOSEPH to prox RCA; continues on DAPT. Admit for symptomatic anemia workup and bradycardia as outlined below. Symptomatic Anemia Thrombocytopenia Emesis x 2; coffee-ground past 24 hours Hgb ED 8.8; baseline 13.0 from 12/2023 No leukocytosis H/O C-scoope Q 3 years for polyps; no recollection of biospy or interventions No H/O EGD. Trend H&H Q6 x 3 CXR negative 12/05 Hemoglobin 8.8, 8.1, 8.8 Iron level 79 Vitamin B12 more than 1500 Folate level ordered Platelet count also noted to be trending down from 100k to 77K Peripheral smear ordered hematology consult placed Status post EGD today Small hiatal hernia. - Erosive gastropathy with no bleeding and no stigmata of recent bleeding. Biopsied. - Normal examined duodenum. - Few gastric erosions related to aspirin. Rule out H. pylori. These are low risk lesions for significant bleeding. If patient to remain on aspirin with anticoagulation change I would treat her with a PPI. If to be on dual antiplatelet therapy should probably be on a PPI anyway based on Compass trial findings. If to be on Xarelto or Eliquis alone may be able to do without a PPI. 12/06 Hg 8.5-- stable overall since yesterday Plt trending up 77--> 87 Peripheral smear: The major findings include macrocytic anemia, thrombocytopenia, monocytosis and nucleated erythrocytes.Presuming that the monocytosis is not an acute phenomenon, the findings are worrisome for a myelodysplastic-myeloproliferative process, such as chronic myelomonocytic leukemia. - reviewed outpatient records last CBC Dec 2023: 8.4/13.8/282 last CBC with diff 2010: no monocytosis - active bleed at present unlikely Lyme screen negative, Anaplasmosis and Babesiosis pending--> on empiric Ceftriaxone IV Day [address] Kori Osborne consulted: "I discussed with the patient and her family the possible diagnosis of a bone marrow failure state and malignancy I advised them that the patient will need several blood tests including molecular studies along with a CT guided bone marrow aspirate and biopsy I discussed what the bone marrow biopsy would entail and how it is performed. We can pursue this as an outpatient We will check US abdomen with attn to liver and spleen urged smoking cessation. Recommend follow up in the cancer center within a week of hospital discharge ECOG 1. Pt amenable with the plan. " 12/07 Hg remains stable at 8.5 Platelet continue to trend up 77, 87, [address] discussed with [address] service Dr[address] Osborne several immunologic serologies ordered, results pending, please follow-up also recommended to obtain direct Mario test, haptoglobin, platelet antibodies, glycoprotein antibodies- ordered, results pending, please follow-up Patient needs to follow-up with hematology service in 1 week. New onset atrial fibrillation Bradycardia - Cardiology service, Dr. Torre consulted - converted to SR with 1st deg AV block - Hold metoprolol resume aspirin - Lyme screen negative Anaplasma and babesiosis DNA pending given anemia, thrombocytopenia, given ceftriaxone x 2 days - discharge plan: discontinue metoprolol and Plavix upon discharge continue aspirin continue doxycycline x 8 more days pending anaplasmosis and babesiosis results Continue close monitoring with telemetry Chest pain: HTN: Substernal chest pressure noted this AM with SOB ECG reveals AF with LBBB; patient with motion; possible PAC's when reviewed; repeat ECG now. Troponin neg x2 Mg+ 2.3, K+ 4.5; monitor labs in AM TSH normal Last ECHO 2021: EF 65-69%, LVWM normal, no valve abnormalities; Repeat ECHO Orthostatic BPs ordered Normotensive in ED Takes Amlodipine 10 mg QHS and Losartan 25 mg QAM; continue for now as less affect on HR Takes Metoprolol 25 mg daily--> discontinue 12/06 Denies chest pain since admission CAD: History of AMI: s/p JOSEPH --> prox RCA in 2015 Follows with [facility]; last appt 2021 Reviewed last note from 2021; was instructed to continue DAPT Takes ASA and Plavix; Resume aspirin only for now as per cardiology service NIDDM2: Metformin was stopped 05/2024 Last A1C 05/2024 8.4; repeat 9.5 Takes Farxiga, Trulicity, and Glipizide; hold for now and place on ACHS FSBS SSI HLD: Takes high-dose Atovastatin; continue Disposition: PCP: Dr. Owens Code Status: Full VTE Prophylaxis: Teds and SCDs for now plan of care discussed with patient and her daughter Mary over the phone in detail and at length all questions answered they are understanding, agreeable, comfortable with the plan of care Admission and Anticipated Discharge Date Admission Date: December 04, 2024 Subjective seen resting in bed, comfortable, not in distress In good spirits States she feels fine overall no chest pain, palpitations, nausea, shortness of breath No fevers or chills, abdominal pain No signs of bleeding No melena hematochezia States she is ready for discharge today Review of Systems Review of Systems: all noted and negative except for above Physical Exam Physical Exam: General- oriented x 3, not in distress, speaks in sentences with no effort or accessory muscle use Eyes- anicteric Neck- no JVD Lungs- clear breath sounds bilaterally, no rales/wheezes Heart- normal rate, regular rhythm; no murmurs Abdomen- normal bowel sounds, nondistended, soft, nontender Extremities- small hematomas BL forearms no pretibial edema, no calf tenderness Neuro- alert, oriented x 3; no gross focal neurologic deficits Skin- warm & dry Results & Data Results & Data Vital Signs (Past 12 Hours) Vital Signs Temp Pulse Pulse Resp BP Pulse Ox O2 Del Method 12/07/24 15:18 36.6 C 71 20 110/65 97 Room Air 12/07/24 15:11 79 12/07/24 11:46 89 12/07/24 11:20 36.3 C L 74 20 137/62 98 Room Air 12/07/24 08:18 36.8 C 75 18 126/66 97 Room Air all noted and reviewed including below
[2024-12-07 17:19] VITALS: BP 149/76; PULSE 72
--- NOTE | 2024-12-07 17:28 | Discharge Summary ---
Discharge Summary Date of Service December 07, 2024 Principal Dx & Hospital Course #1 = Principal Diagnosis (1) Symptomatic anemia: (2) Generalized weakness: (3) Hypertension: (4) NSTEMI (non-ST elevated myocardial infarction): Plan per previous hospitalist notes with addendum: 79 year old female that presents to the ED with SOB and substernal chest pressure that has resolved. Two episodes of coffee-ground emesis over past 24 hours. H/O AMI in 2016 s/p JOSEPH to prox RCA; continues on DAPT. Admit for symptomatic anemia workup and bradycardia as outlined below. Anemia Thrombocytopenia - Gastropathy - r/o Myelodysplasia, Duenas Syndrome Emesis x 2; coffee-ground past 24 hours Hgb ED 8.8; baseline 13.0 from 12/2023 No leukocytosis H/O C-scoope Q 3 years for polyps; no recollection of biospy or interventions No H/O EGD. Trend H&H Q6 x 3 CXR negative 12/05 Hemoglobin 8.8, 8.1, 8.8 Iron level 79 Vitamin B12 more than 1500 Folate level ordered Platelet count also noted to be trending down from 100k to 77K Peripheral smear ordered hematology consult placed Status post EGD today Small hiatal hernia. - Erosive gastropathy with no bleeding and no stigmata of recent bleeding. Biopsied. - Normal examined duodenum. - Few gastric erosions related to aspirin. Rule out H. pylori. These are low risk lesions for significant bleeding. If patient to remain on aspirin with anticoagulation change I would treat her with a PPI. If to be on dual antiplatelet therapy should probably be on a PPI anyway based on Compass trial findings. If to be on Xarelto or Eliquis alone may be able to do without a PPI. 12/06 Hg 8.5-- stable overall since yesterday Plt trending up 77--> 87 Peripheral smear: The major findings include macrocytic anemia, thrombocytopenia, monocytosis and nucleated erythrocytes.Presuming that the monocytosis is not an acute phenomenon, the findings are worrisome for a myelodysplastic-myeloproliferative process, such as chronic myelomonocytic leukemia. - reviewed outpatient records last CBC Dec 2023: 8.4/13.8/282 last CBC with diff 2010: no monocytosis - active bleed at present unlikely Lyme screen negative, Anaplasmosis and Babesiosis pending--> on empiric Ceftriaxone IV Day [address] Kori Osborne consulted: "I discussed with the patient and her family the possible diagnosis of a bone marrow failure state and malignancy I advised them that the patient will need several blood tests including m olecular studies along with a CT guided bone marrow aspirate and biopsy I discussed what the bone marrow biopsy would entail and how it is performed. We can pursue this as an outpatient We will check US abdomen with attn to liver and spleen urged smoking cessation. Recommend follow up in the cancer center within a week of hospital discharge ECOG 1. Pt amenable with the plan. " 12/07 Hg remains stable at 8.5 Platelet continue to trend up 77, 87, 92 Abd US: 1. The spleen measures 11.0 cm. 2. The liver measures 16.8 cm. Coarse echogenicity of the liver may relate to fatty infiltration and/or hepatocellular dysfunction. discussed with hematology service Dr. 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 also recommended to obtain direct Mario test, haptoglobin, platelet antibodies, glycoprotein antibodies- ordered, results pending, please follow-up Patient needs to follow-up with hematology service in 1 week. New onset atrial fibrillation Bradycardia - Cardiology service, Dr. Torre consulted - converted to SR with 1st deg AV block - Hold metoprolol resume aspirin - Lyme screen negative Anaplasma and babesiosis DNA pending given anemia, thrombocytopenia, given ceftriaxone x 2 days - discharge plan: discontinue metoprolol and Plavix upon discharge continue aspirin continue doxycycline x 8 more days pending anaplasmosis and babesiosis results Continue close monitoring with telemetry Chest pain: HTN: Substernal chest pressure noted this AM with SOB ECG reveals AF with LBBB; patient with motion; possible PAC's when reviewed; repeat ECG now. Troponin neg x2 Mg+ 2.3, K+ 4.5; monitor labs in AM TSH normal Last ECHO 2021: EF 65-69%, LVWM normal, no valve abnormalities; Repeat ECHO Orthostatic BPs ordered Normotensive in ED Takes Amlodipine 10 mg QHS and Losartan 25 mg QAM; continue for now as less affect on HR Takes Metoprolol 25 mg daily--> discontinue 12/06 Denies chest pain since admission CAD: History of AMI: s/p JOSEPH --> prox RCA in 2015 Follows with [facility]; last appt 2021 Reviewed last note from 2021; was instructed to continue DAPT Takes ASA and Plavix; Resume aspirin only for now as per cardiology service NIDDM2: Metformin was stopped 05/2024 Last A1C 05/2024 8.4; repeat 9.5 Takes Farxiga, Trulicity, and Glipizide; hold for now and place on ACHS FSBS SSI HLD: Takes high-dose Atovastatin; continue Disposition: PCP: Dr. Owens Code Status: Full VTE Prophylaxis: Teds and SCDs for now plan of care discussed with patient and her daughter Mary over the phone in detail and at length all questions answered they are understanding, agreeable, comfortable with the plan of care Notes For Next Care Provider Medication Changes From Visit per medical reconciliation Admission HPI Per Admitting Provider Ms. Mares is a 79 year old female that presented to the ED with complaints of SOB and substernal chest pressure, which resolved when she arrived to the ED. She was at the [facility] and reports she was not eating her usual diet and this morning she woke up and felt winded carrying a suitcase. She also reports coffee-ground emesis over past 24 hours x2. PMH includes: H/O AMI in 2016 s/p JOSEPH to prox RCA; continues on DAPT. NIDDM2, HTN, HLD, macular degeneration, and tobacco use. Pt reports history of colonoscopy, last one unsure of year; receives them Q3 years for polyps; no recent biopsies or note of bleeding. No history of EGD. In the ED, no leukocytosis, slight hyponatremia 134 I suspect due to dehydration from emesis. Hgb 8.8; reportedly baseline is 13 range from last year. ECG revealed AF with LBBB. Otherwise denies MORENO, dizzines, visual or auditory changes, abdominal pain or tenderness, hematochezia, diarrhea, recent falls or trauma. On examination, she is a well nourished female, able to hold full conversation and is a reliable historian. She appears euvolemic, slightly pale on ex amination. No adventitious lung sounds noted. She was bradycardia on monitor throughout my visit. Pt smokes 5-6 cigarettes/day for 20 pack year history. No alcohol or recreational drug use. For now, patient will be admitted for symptomatic anemia and bradycardia. Will trend H/H, T/C and blood consent obtained. Will ordered FOBT, Protonix BID IV, GI Consult, anemia panel; keep NPO for now. For bradycardia, will repeat ECG, repeat ECHO, ortho BPs, add on TSH, and adjust betablocker; will place on SSI, cards consult placed. Admission Exam Per Admitting Provider Neuro: AAOx4, PERRLA, no aphagia, memory changes, CNII-XII grossly intact HEENT: head normocephalic, moist mucus membranes CV: S1/S2, (-) M/G/R, (-) edema, cap refill < 3 seconds Resp: Lungs CTA in all garduno. On RA GI: Abdomen S/NT/ND, Ax4 bowel sounds, (-) CVA tenderness Musculoskeletal: 5/5 B/L UE strength, 5/5 B/L LE strength. No gait disturbance Skin: (-) rashes , (-) erythema. Psych: euthymic mood Discharge Exam General- oriented x 3, not in distress, speaks in sentences with no effort or accessory muscle use Eyes- anicteric Neck- no JVD Lungs- clear breath sounds bilaterally, no rales/wheezes Heart- normal rate, regular rhythm; no murmurs Abdomen- normal bowel sounds, nondistended, soft, nontender Extremities- small hematomas BL forearms no pretibial edema, no calf tenderness Neuro- alert, oriented x 3; no gross focal neurologic deficits Skin- warm & dry Updated Medication List Medication Instructions Recorded Confirmed Type aspirin 81 mg tablet,delayed 81 mg PO QAM 07/29/18 12/05/24 History release atorvastatin 80 mg tablet 80 mg PO HS 07/29/18 12/05/24 History glipizide 10 mg tablet, extended 10 mg PO BIDM 07/29/18 12/05/24 History release 24 hr losartan 25 mg tablet 25 mg PO QAM 07/29/18 12/05/24 History nitroglycerin 0.4 mg sublingual 0.4 mg sublingual UD 07/29/18 12/05/24 History tablet vit C 250 mg-vit E 90 mg-zinc 40 1 tab PO BID 07/29/18 12/05/24 History mg-copper 1 cx-eyiagd-adejav capsule (PreserVision AREDS-2) amlodipine 10 mg tablet 10 mg PO HS 12/04/24 12/05/24 History dapagliflozin propanediol 10 mg 10 mg PO QAM 12/04/24 12/05/24 History tablet (Farxiga) dulaglutide 4.5 mg/0.5 mL 4.5 mg subcut WK 12/04/24 12/05/24 History subcutaneous pen injector (Trulicity) nystatin 100,000 unit/gram topical 1 applic topical BID PRN Flare 12/04/24 12/05/24 History ointment thiamine HCl (vitamin B1) 250 mg 250 mg PO DAILY 12/04/24 12/05/24 History tablet (Vitamin B-1) triamcinolone acetonide 0.1 % 1 applic topical BID PRN Flare 12/04/24 12/05/24 History topical ointment L.acidop,casei,lactis,rham-B.lact,deepthi 1 cap PO DAILY #30 caps 12/07/24 Rx 625 mg (10 billion cell) capsule (Advanced Probiotic) Lactobacillus acidoph-L.bulgaricus 1 tab PO DAILY #30 tabs 12/07/24 Rx 1 million cell tablet (Floranex) doxycycline hyclate 100 mg capsule 100 mg PO BID 8 days #16 caps 12/07/24 Rx doxycycline hyclate 100 mg tablet 100 mg PO BID 8 days #16 tabs 12/07/24 Rx pantoprazole 40 mg tablet,delayed 40 mg PO DAILY #30 tabs 12/07/24 Rx release (Protonix) pantoprazole 40 mg tablet,delayed 40 mg PO DAILY #30 tabs 12/07/24 Rx release (Protonix) Hospital Stay Data Consultations 12/04/24 12:38 ED Decision to Admit Stat 12/04/24 13:35 Consult Gastroenterology Routine 12/04/24 14:25 Consult Cardiology Routine 12/05/24 15:33 Consult Hematology Routine Procedures Performed Operation Date: 12/05/24 16:30 Actual Procedures p EGD Biopsy Cytology - Taran Alexis MD Diagnostic Imagining Performed Laboratory Results WBC 8.63 K/ul (4.8-10.8) 12/07/24 07:41 RBC 2.54 M/uL (4.20-5.40) L 12/07/24 07:41 Hgb 8.5 g/dl (12.0-16.0) L 12/07/24 07:41 Hct 25.5 % (37.0-47.0) L 12/07/24 07:41 MCV 100.4 fL (80.0-100.0) H 12/07/24 07:41 MCH 33.5 pg (25.0-34.0) 12/07/24 07:41 MCHC 33.3 g/dL (32.0-36.0) 12/07/24 07:41 RDW Std Deviation 56.8 fL (36.4-46.3) H 12/07/24 07:41 RDW Coeff of Curtis 15.4 % (11.5-14.5) H 12/07/24 07:41 Plt Count 92 K/uL (130-400) L 12/07/24 07:41 MPV 11.1 fL (9.4-12.4) 12/07/24 07:41 Immature Gran % (Auto) 0.3 % 12/06/24 06:59 Neut % (Auto) 52.3 % 12/06/24 06:59 Lymph % (Auto) 21.0 % 12/06/24 06:59 [place] % (Auto) 25.9 % 12/06/24 06:59 Eos % (Auto) 0.4 % 12/06/24 06:59 Baso % (Auto) 0.1 % 12/06/24 06:59 Reticulocyte % (Auto) 1.63 % (0.50-2.00) 12/07/24 07:41 Neut # (Auto) 4.06 K/uL (1.40-6.50) 12/06/24 06:59 Lymph # (Auto) 1.63 K/uL (1.20-3.40) 12/06/24 06:59 [place] # (Auto) 2.01 K/uL (0.11-0.59) H 12/06/24 06:59 Eos # (Auto) 0.03 K/uL (0.00-0.50) 12/06/24 06:59 Baso # (Auto) 0.01 K/uL (0.00-0.20) 12/06/24 06:59 Reticulocyte # 0.040 10^6/uL (0.020-0.100) 12/07/24 07:41 Immature Gran # (Auto) 0.02 K/uL (0.01-0.20) 12/06/24 06:59 Absolute Nucleated RBC 0.12 K/uL (0.00-0.12) 12/07/24 07:41 Nucleated RBC % (auto) 1.4 % 12/07/24 07:41 Neutrophils % (Manual) 54 % 12/07/24 07:41 Band Neutrophils % Cancelled 12/05/24 06:28 Lymphocytes % (Manual) 23 % 12/07/24 07:41 Prolymphocyte % Cancelled 12/05/24 06:28 Reactive Lymphs % (Man) Cancelled 12/05/24 06:28 Monocytes % (Manual) 21 % 12/07/24 07:41 Eosinophils % (Manual) 2 % 12/07/24 07:41 Basophils % (Manual) Cancelled 12/05/24 06:28 Metamyelocytes % (Man) Cancelled 12/05/24 06:28 Myelocytes % (Man) Cancelled 12/05/24 06:28 Promyelocytes % (Man) Cancelled 12/05/24 06:28 Blast Cells % (Manual) Cancelled 12/05/24 06:28 Plasma Cell % (Manual) Cancelled 12/05/24 06:28 Other Cells % Cancelled 12/05/24 06:28 Nucleated RBC % Cancelled 12/05/24 06:28 Neutrophils # (Manual) 4.66 K/uL (1.40-6.50) 12/07/24 07:41 Band Neutrophils # Cancelled 12/05/24 06:28 Total Absolute Neuts 4.66 K/uL (1.4-6.5) 12/07/24 07:41 Lymphocytes # (Manual) 1.98 K/uL (1.2-3.4) 12/07/24 07:41 Prolymphocyte # Cancelled 12/05/24 06:28 Reactive Lymphs # Cancelled 12/05/24 06:28 Total Abs Lymphocytes 1.98 K/uL (1.2-3.4) 12/07/24 07:41 Monocytes # (Manual) 1.81 K/uL (0.11-0.59) H 12/07/24 07:41 Eosinophils # (Manual) 0.17 K/uL (0-0.50) 12/07/24 07:41 Basophils # (Manual) Cancelled 12/05/24 06:28 Metamyelocytes # (Man) Cancelled 12/05/24 06:28 Myelocytes # (Manual) Cancelled 12/05/24 06:28 Promyelocytes # (Man) Cancelled 12/05/24 06:28 Blast Cells # (Man) Cancelled 12/05/24 06:28 Plasma Cell # (Manual) Cancelled 12/05/24 06:28 Other Cells # Cancelled 12/05/24 06:28 Nucleated RBCs # (Man) Cancelled 12/05/24 06:28 Hypersegmented Neuts 1+ 12/05/24 06:28 Hypersegmented Neuts Cancelled 12/05/24 06:28 Hyposegmented Neuts Cancelled 12/05/24 06:28 Hypogranular Neuts 1+ 12/07/24 07:41 Large Granular Lymphs Cancelled 12/05/24 06:28 # Lrg Granular Lymphs Cancelled 12/05/24 06:28 Hairy Cells Cancelled 12/05/24 06:28 Smudge Cells Cancelled 12/05/24 06:28 Toxic Granulation Cancelled 12/05/24 06:28 Toxic Vacuolation Cancelled 12/05/24 06:28 Dohle Bodies Cancelled 12/05/24 06:28 Aramis Rods Cancelled 12/05/24 06:28 Platelet Estimate Cancelled 12/05/24 06:28 Hypogranular Platelets Cancelled 12/05/24 06:28 Giant Platelets Cancelled 12/05/24 06:28 Platelet Satelliting Cancelled 12/05/24 06:28 RBC Morphology Cancelled 12/05/24 06:28 Polychromasia 1+ 12/07/24 07:41 Hypochromasia Cancelled 12/05/24 06:28 Poikilocytosis Cancelled 12/05/24 06:28 Basophilic Stippling Cancelled 12/05/24 06:28 Anisocytosis Cancelled 12/05/24 06:28 Microcytosis Cancelled 12/05/24 06:28 Macrocytosis Cancelled 12/05/24 06:28 Spherocytes Cancelled 12/05/24 06:28 Pappenheimer Bodies Cancelled 12/05/24 06:28 Sickle Cells Cancelled 12/05/24 06:28 Target Cells Cancelled 12/05/24 06:28 Tear Drop Cells Cancelled 12/05/24 06:28 Ovalocytes 1+ 12/07/24 07:41 Stomatocytes Cancelled 12/05/24 06:28 [place] Bodies Cancelled 12/05/24 06:28 Echinocytes 1+ 12/05/24 06:28 Echinocytes Cancelled 12/05/24 06:28 Acanthocytes (Spur) Cancelled 12/05/24 06:28 Rouleaux Cancelled 12/05/24 06:28 RBC Agglutinates Cancelled 12/05/24 06:28 Schistocytes Cancelled 12/05/24 06:28 Peripher Smr Path Cons 12/05/24 06:28 Peripher Smr Path Cons Cancelled 12/05/24 06:28 ESR 64 mm/hr (0-30) H 12/07/24 07:41 Sezary Cell Cancelled 12/05/24 06:28 PT 11.4 Seconds (9.0-12.0) 12/04/24 09:05 INR 1.1 (0.9-1.1) 12/04/24 09:05 Sodium 138 mmol/L (136-145) 12/07/24 07:41 Potassium 4.4 mmol/L (3.5-5.1) 12/07/24 07:41 Chloride 105 mmol/L (98-107) 12/07/24 07:41 Carbon Dioxide 27 mmol/L (21-32) 12/07/24 07:41 Anion Gap 6 (3-11) 12/07/24 07:41 BUN 19 mg/dl (6-23) 12/07/24 07:41 Creatinine 0.79 mg/dl (0.6-1.2) 12/07/24 07:41 Est Cr Clr Drug Dosing 64.1 ml/min 12/07/24 07:41 eGFR 76.52 12/07/24 07:41 BUN/Creatinine Ratio 24.1 (10-20) H 12/07/24 07:41 Glucose 176 mg/dl (70-99(Fasting)) H 12/07/24 07:41 POC Glucose 169 mg/dl (70-99) H 12/07/24 17:11 Estimat Average Glucose 226 mg/dl 12/05/24 06:27 Hemoglobin A1c 9.5 % (4.5-5.6) H 12/05/24 06:27 Uric Acid 4.0 mg/dl (2.6-7.2) 12/07/24 07:41 Calcium 9.0 mg/dl (8.6-10.3) 12/07/24 07:41 Magnesium 2.1 mg/dl (1.7-2.4) 12/06/24 06:59 Iron 79 mcg/dl (35-150) 12/04/24 10:40 TIBC 314 mcg/dl (250-450) 12/04/24 10:40 Transferrin 224 mg/dl (200-360) 12/04/24 10:40 Transferrin % Sat 25 % (15-50) 12/04/24 10:40 Ferritin 250.8 ng/ml (8-388) 12/07/24 07:41 Total Bilirubin 0.8 mg/dl (0.2-1.0) 12/07/24 07:41 Direct Bilirubin 0.3 mg/dl (0-0.2) H 12/05/24 16:04 AST 9 U/L (13-39) L 12/07/24 07:41 ALT 11 U/L (7-52) 12/07/24 07:41 Alkaline Phosphatase 72 U/L (34-104) 12/07/24 07:41 Lactate Dehydrogenase 178 U/L (86-244) 12/07/24 07:41 Troponin I High Sens 10.8 pg/ml (0-14) 12/04/24 10:40 B-Natriuretic Peptide 604 pg/ml (0-100) H 12/04/24 15:37 Total Protein 6.6 gm/dl (6.0-8.3) 12/07/24 07:41 Albumin 3.5 gm/dl (3.4-5.0) 12/07/24 07:41 Globulin 3.1 gm/dl (2.5-4.0) 12/07/24 07:41 Albumin/Globulin Ratio 1.1 (0.9-2) 12/07/24 07:41 Lipase 8 U/L (11-82) L 12/04/24 09:05 Vitamin B12 > 1500 pg/ml (180-914) H 12/04/24 09:05 Folate > 22.30 ng/ml (>5.38) 12/05/24 15:56 TSH 3.784 uIu/ml (0.300-4.500) 12/04/24 10:40 IgG 692.5 mg/dl (635-1741) 12/07/24 07:41 IgA 277.2 mg/dl (70-400) 12/07/24 07:41 IgM 57.2 mg/dl (45-281) 12/07/24 07:41 Adenovirus (PCR) Not Detected (NotDetected) 12/04/24 09:40 Anaplasma Smear See Comment 12/04/24 09:05 Babesia Smear See Comment 12/04/24 09:05 B. pertussis DNA (PCR) Not Detected (NotDetected) 12/04/24 09:40 B.parapertussis DNA PCR Not Detected (NotDetected) 12/04/24 09:40 Lyme Disease Screen Negative (Negative) 12/04/24 09:05 C. pneumoniae DNA (PCR) Not Detected (NotDetected) 12/04/24 09:40 Coronavirus OC43 (PCR) Not Detected (NotDetected) 12/04/24 09:40 Coronavirus HKU1 (PCR) Not Detected (NotDetected) 12/04/24 09:40 Coronavirus 229E (PCR) Not Detected (NotDetected) 12/04/24 09:40 SARS-CoV-2 (PCR) Not Detected (NotDetected) 12/04/24 09:40 Coronavirus NL63 (PCR) Not Detected (NotDetected) 12/04/24 09:40 Hep Bs Antigen Negative (Negative) 12/07/24 07:41 Hep Bs Antibody Non-Immune 12/07/24 07:41 Hep Bs Antibody, Quant < 3.00 mIU/mL (>or=10mIU/mL Immune) 12/07/24 07:41 Human Metapneumovir PCR Not Detected (NotDetected) 12/04/24 09:40 Influenza Type A (PCR) Not Detected (NotDetected) 12/04/24 09:40 Influenza Type B (PCR) Not Detected (NotDetected) 12/04/24 09:40 M. pneumoniae (PCR) Not Detected (NotDetected) 12/04/24 09:40 Parainfluenza 1 (PCR) Not Detected (NotDetected) 12/04/24 09:40 Parainfluenza 2 (PCR) Not Detected (NotDetected) 12/04/24 09:40 Parainfluenza 3 (PCR) Not Detected (NotDetected) 12/04/24 09:40 Parainfluenza 4 (PCR) Not Detected (NotDetected) 12/04/24 09:40 RSV (PCR) Not Detected (NotDetected) 12/04/24 09:40 Entero/Rhino (PCR) Not Detected (NotDetected) 12/04/24 09:40 Blood Parasites ID Cancelled 12/05/24 06:28 Blood Type O Positive 12/04/24 12:50 Antibody Screen NEGATIVE 12/04/24 12:50 Impressions Chest X-Ray 12/04/24 08:51 XR chest 1V portable CLINICAL HISTORY: Chest pain, nonspecific COMPARISON STUDY: 09/18/2014 FINDINGS: There is mild cardiomegaly without pulmonary vascular congestion. Lungs are mildly hyperexpanded. No consolidation or pleural effusion. No pneumothorax. IMPRESSION: No acute findings. ACT 112: Negative or not required by law. Electronically signed by: Christian Barber M.D. 12/04/2024 9:33 AM Abdomen Ultrasound 12/06/24 21:33 Exam(s): US ABDOMEN LIMITED EXAM: US Abdomen Limited, Right Upper Quadrant CLINICAL HISTORY: Assess liver and spleen - need measurements/MDS. TECHNIQUE: Real-time ultrasound of the right upper quadrant with image documentation. COMPARISON: No relevant prior studies available. FINDINGS: Liver: The liver measures 16.8 cm. Coarse echogenicity of the liver may relate to fatty infiltration and/or hepatocellular dysfunction. No intrahepatic bile duct dilation. No hepatic mass. Spleen: The spleen measures 11.0 cm. Echogenic foci likely represent chronic granulomatous disease. IMPRESSION: 1. The spleen measures 11.0 cm. 2. The liver measures 16.8 cm. Coarse echogenicity of the liver may relate to fatty infiltration and/or hepatocellular dysfunction. Electronically signed by: Alyssia Del Valle MD 12/07/24 00:53 AM 12/06/24 21:33 US abdomen limited Routine Pending Results Patient Have Any Pending Studies at Discharge: Yes Discharge Instructions Given to Patient (Per Discharging Provider) PLEASE REFER TO YOUR NEW MEDICATION LIST AND FOLLOW INSTRUCTIONS CAREFULLY. YOUR NEW MEDICATIONS INCLUDE: Doxycycline-antibiotic for possible tickborne infection Protonix-antacid to prevent stomach ulcers; always take at least 30 minutes before breakfast Stop taking metoprolol, Plavix. Do not take any medications other class of NSAIDs including ibuprofen, naproxen, etc. Always take aspirin with a full stomach. PLEASE CALL YOUR PRIMARY CARE PHYSICIAN OR RETURN TO THE ER IF WITH WORSENING OF SYMPTOMS, INCLUDING Fevers or chills, weakness, bleeding, dizziness, chest pain, shortness of breath, palpitations, etc. FOLLOW UP WITH PRIMARY CARE PHYSICIAN in 1 week. Follow-up with [facility] in 1 week c/o Dr. Parada or Dr. Delgadillo. Please call their office for an appointment. contact information outlined above. Total Time Total Time Spent Total Time Spent (In Minutes): 60 minutes
[2024-12-10 09:47] LABS: Albumin 3.1 g/dL (3.8-4.8); Beta-1-Globulin 0.4 g/dL (0.4-0.6); Gamma Globulin 0.6 g/dL (0.8-1.7); Total Protein 5.9 g/dL (6.1-8.1); Viscosity, Serum 1.6 rel to H2O (1.5-1.9)
[2024-12-13 11:37] LABS: Plt Ab, Direct IgG NEGATIVE (NEGATIVE)
--- NOTE | 2024-12-18 06:00 | Coding Query ---
PATHOLOGY To promote full compliance with coding requirements relating to patient care, physician participation is requested in all cases of surgical coder uncertainty. Please assist us with the question(s) below: Please review the Pathology report and please document any relevant diagnosis(es) below: Pt admitted with hematemesis - EGD done, helicobachter negative.. Diagnosis(es): Anemia Thank you LE[facility] P[facility]
== END 2024-12-07 18:31 | disposition home or self-care (01) | DRG 812 ==
LOC: ED 08:41 → 2N 12:47 → SUATTDRO 12:47 → 2N 13:27